=== PATIENT | female | born 1940 | race Caucasian/White ===

== ENCOUNTER 2021-01-26 08:44 | Emergency (ER) | payer MEDICARE, SELFPAY ==
--- NOTE | ~2021-01-26 | CT_ITS ---
EXAMINATION: CT brain wo con DATE: 01/26/2021 10:08 INDICATION: Fall. Head injury. Facial injury. TECHNIQUE: Computed tomography (CT) of the head was performed without intravenous contrast. The mA wa s adjusted according to patient size. Iterative reconstruction technique was employed. Exam dose: 60 5.33 mGy-cm total exam DLP. COMPARISON: 10/14/2017 MRI brain FINDINGS: Prominent bilateral vertebral artery calcifications and prominent carotid siphon and suprac linoid internal carotid artery calcifications. There is nonspecific diminished attenuation of the cerebral white matter, likely due to chronic small vessel ischemic changes. No intracranial mass lesion or hemorrhage or recent cerebrovascular accident. No midline shift or mas s effect. There is moderate cerebral volume loss consistent with patient age. No subdural or epidural hematoma. No fracture or bone destruction of the cranial vault. Mastoid air cells and included paranasal sinuse s are normally developed and aerated. IMPRESSION: Prominent cerebral atherosclerosis and chronic small vessel ischemic changes of the cere bral white matter No acute intracranial finding or skull fracture Reviewed, dictated and finalized at [facility]. Reviewed, dictated and finalized at [facility]. IMPRESSION: Prominent cerebral atherosclerosis and chronic small vessel ischem ic changes of the cerebral white matter No acute intracranial finding or skull fracture
--- NOTE | ~2021-01-26 | CT_ITS ---
EXAMINATION: CT facial & cervical spine wo DATE: 01/26/2021 10:09 INDICATION: Fall. Head injury, facial injury. Headache, neck pain. TECHNIQUE: Computed tomography (CT) of the facial bones and maxillofacial region was performed withou t intravenous contrast. Automated exposure control and iterative reconstruction technique were employ ed. Exam dose: 172.60 mGy-cm total exam DLP. COMPARISON: None. FINDINGS: No facial fracture. The frontozygomatic sutures, orbital rims and girard, zygomatic arches, nasal bones and remainder of the facial bones are intact. No mandibular joints are intact. No mandibl e fracture is evident. There is straightening of the cervical spine. C1 and C2 are normally aligned and the odontoid process is intact. No fracture or dislocation or lock ed facet or prevertebral soft tissue swelling. Moderate degenerative disc disease at C2-3, moderately severe degenerative disc disease C3-4. There is mild anterolisthesis and mild degenerative disc disease at C4-5. There is severe degenerative disease at C5-6 and C6-7. There is fusion of the posterior elements at C2-3 on the left and degenerative change at the remainin g apophyseal joints. IMPRESSION: No facial fracture Straightening of the cervical spine Cervical spondylosis Reviewed, dictated and finalized at [facility]. Reviewed, dictated and finalized at [facility].
[2021-01-26 08:57] VITALS: BP 154/74; PULSE 74; RESP 16; TEMP 36.4; O2SAT 94
[2021-01-26] MEDS: TETANUS,DIPHTHERIA,AC PERTUSSIS ADULT (0.5 ML) BOOSTRIX IM (09:53)
--- NOTE | 2021-01-26 10:55 | ED.FALL ---
HPI - Fall General Chief Complaint: Fall Stated Complaint: FALL-CHIN LAC Time Seen by Provider: 01/26/21 09:27 Source: patient and RN notes reviewed Mode of arrival: EMS Limitations: dementia History of Present Illness HPI Narrative: This is an 81 year old female who presents from Assisted living who presents for evaluation of chin laceration. Patient does not remember why or how she fell. Nursing report states patient fell using her walker and she hit her chin. She was found to have a chin laceration needed stitches. PAtient denies any other complaints. Related Data Home Medications Medication Instructions Recorded Confirmed dorzolamide-timolol 07/02/19 ramipril mg 07/02/19 rivastigmine 07/02/19 Allergies Allergy/AdvReac Type Severity Reaction Status Date / Time No Known Allergies Allergy Verified 01/26/21 09:22 Review of Systems Review of Systems: All systems reviewed & are unremarkable except as noted in HPI and below Constitutional: Constitutional: Denies chills and Denies fever(s) Eyes: Eyes: Denies change in vision ENT: Denies dizziness Cardiovascular: Cardiovascular: Denies chest pain Musculoskeletal: Musculoskeletal: Denies back pain FOR[facility]LY [facility], [facility] Past Medical History Medical History (Updated 01/26/21 @ 14:27 by Kathi Lerner MD) CHF (congestive heart failure) Dementia Hyperlipidemia Hypertension Family History Family History (Updated 05/27/16 @ 11:37 by DOCTOR UNKNOWN) Sibling Family history of malignant neoplasm Mother Carcinoma of colon Other Family history of malignant neoplasm of breast in first degree relative Social History Social History Smoking status: Never smoker Smoking end date: 06/07/77 Alcohol intake: never Exam Const: General: no acute distress and alert Other: oriented to person, palce HENMT: Mouth: Yes Normal oral and palatal mucosa present Throat: uvula midline Other: 2 cm chin laceration Eyes: Pupils: Equal, round and reactive pupils present EOM: EOMs intact bilaterally Neck: Neck: normal visual inspection Chest: Chest palpation & inspection: normal inspection of the chest Resp: Effort & Inspection: normal respiratory effort and no retractions Auscultation: clear to auscultation bilaterally Cardio: Rate: regular rate Rhythm: regular rhythm Heart sounds: no murmurs GI: GI Palp: Yes Soft to palpation, No Tenderness to palpation present (GI) and No Guarding due to palpation present (GI) Auscultation: normal bowel sounds Neuro: General: moves all extremities and CN's II-XI intact bilaterally Extrem: Other: bilateral elbow with bandage, patient reports from previous fall, otherwise FROM Psych: Mental Status: mental status grossly normal Affect: normal affect Course Reevaluation(s) Reevaluation #1: Patient's imaging is unremarkable. Her chin laceration has been repaired. No further complaints. she has been up and ambulating. Date: 01/26/21 Time: 14:25 Vital Signs Vital signs: Vital Signs Temperature 97.6 F 01/26/21 08:57 Pulse Rate 74 01/26/21 08:57 Respiratory Rate 16 01/26/21 08:57 Blood Pressure 154/74 H 01/26/21 08:57 Pulse Oximetry 94 01/26/21 08:57 Temperature 97.6 F 01/26/21 08:57 Pulse Rate 80 01/26/21 11:11 Respiratory Rate 16 01/26/21 11:11 Blood Pressure 200/83 H 01/26/21 11:11 Pulse Oximetry 94 01/26/21 08:57 Procedures Laceration Laceration 1: Date: 01/26/21 Time: 14:24 Site: other (chin laceration) Description: clean Depth: simple, single layer Pre-repair: wound explored and deep structures intact ====== Skin Level ====== Skin layer closed with: other (fast absorbing gut) Size (cm): 5-0 Number of sutures: 7 Technique: simple, interrupted ====== Subcutaneous Layer ====== ====== Muscle Layer ====== ====== Tendon Layer ====== MDM - Fall Imaging Data Radiologi
[2021-01-26 11:11] VITALS: BP 200/83; PULSE 80; RESP 16
--- NOTE | 2021-01-26 12:20 | PC.NURSE ---
meal tray ordered
--- NOTE | 2021-01-26 12:52 | PC.NURSE ---
PT ASKED TO CONTACT HER SON JHONY. ATTEMPTED TO CONTACT NO ANSWER,LEFT MESSAGE TO RETURN CALL.
--- NOTE | 2021-01-26 14:14 | PC.NURSE ---
suturing completed. pt tolerated well. [facility] does not have a bus today. message left with son for ride back to assisted living.
--- NOTE | 2021-01-26 14:37 | PC.NURSE ---
[facility] to transport pt back to [facility]
== END 2021-01-26 13:07 ==
PROVIDERS: Emergency Provider General Practice; PCP Family Medicine
DX: S01.81XA Laceration without foreign body of other part of head, initial encounter (principal); I50.9 Heart failure, unspecified; I11.0 Hypertensive heart disease with heart failure; F03.90 Unspecified dementia, unspecified severity, without behavioral disturbance, psychotic disturbance, mood disturbance, and anxiety; Z23 Encounter for immunization; W19.XXXA Unspecified fall, initial encounter; Y92.129 Unspecified place in nursing home as the place of occurrence of the external cause
CPT/HCPCS: 12011; 70450; 70486; 72125; 90471; 90715; 99284

== ENCOUNTER 2023-01-14 11:37 | Emergency (ER) | payer MEDICARE, SELFPAY ==
--- NOTE | ~2023-01-14 | XR_ITS ---
EXAMINATION: XR hip BI 2V w AP pelvis DATE: 01/14/2023 12:39 INDICATION: Fall. Right hip pain. TECHNIQUE: An anteroposterior view of the pelvis and 2 views of right hip and 2 views of left hip on a total of 6 radiographs were obtained. COMPARISON: Right hip radiographs 12/24/2011 FINDINGS: There is a total right hip arthroplasty in near-anatomic alignment. No periprosthetic lucen cy to disclose loosening or infection. There is a fracture deformity of right inferior pubic ramus. T here is lumbar dextroscoliosis and severe spondylosis. There is severe left hip osteoarthritis. IMPRESSION: 1. Age-indeterminate fracture deformity of right inferior pubic ramus. 2. Total right hip arthroplasty in near-anatomic alignment. 3. Severe left hip osteoarthritis. Reviewed, dictated and finalized at [facility].
--- NOTE | ~2023-01-14 | CT_ITS ---
EXAMINATION: CT brain wo con DATE: 01/14/2023 14:33 INDICATION: Fall. TECHNIQUE: Computed tomography (CT) of the head was performed without intravenous contrast. The mA wa s adjusted according to patient size. Iterative reconstruction technique was employed. The dose-lengt h product was 681.00 mGy-cm. COMPARISON: Head CT 01/26/2021 FINDINGS: There are scattered areas of low attenuation in the cerebral white matter. There is no intr acranial hemorrhage, acute infarction, or abnormal intracranial mass lesion. The ventricles are karel l in size. There are likely changes of ocular lens replacement surgeries. The paranasal sinuses are c lear. The mastoid air cells are normal. IMPRESSION: 1. Stable moderate nonspecific cerebral white matter disease, which likely represents chronic small v essel ischemic disease. Reviewed, dictated and finalized at [facility]. IMPRESSION: 1. Stable moderate nonspecific cerebral white matter disease, which likely repr esents chronic small vessel ischemic disease.
--- NOTE | ~2023-01-14 | CT_ITS ---
EXAMINATION: CT chest abdomen pelvis w con DATE: 01/14/2023 14:34 INDICATION: Fall. TECHNIQUE: Computed tomography (CT) of the chest, abdomen, and pelvis was performed with 100 mL Omnip aque 350 intravenous contrast. Automated exposure control and iterative reconstruction technique were employed. The dose-length product was 770.90 mGy-cm. COMPARISON: None FINDINGS: CHEST CT: The lungs demonstrate mild atelectasis. No pleural effusion. Cardiomegaly is noted. There are coronar y artery calcifications. No pericardial effusion. Calcified left hilar and mediastinal lymph nodes ar e consistent with old granulomatous disease. There is a moderate-sized sliding hiatal hernia. There i s moderate thoracic spondylosis. There are old healed bilateral rib fractures. ABDOMEN/PELVIS CT: Calcifications in the liver and spleen are consistent with old granulomatous disease. There is modera te intrahepatic biliary duct dilatation. There is a 12 mm low-attenuation mass in the spleen. The com mon duct is dilated to 18 mm. The gallbladder is absent. There is a 2.7 cm cystic lesion in the pancr eas. There are least 4 cystic lesions in the pancreas measuring up to 2.7 cm. The adrenal glands and right kidney are normal. There are cysts in left kidney measuring up to 2.4 cm. There is calcified at herosclerosis of the aorta and many of the other arteries. The bladder is markedly distended. There i s diverticulosis of the colon without evidence of diverticulitis. There are no dilated loops of bowel . The appendix is normal. There are no pathologically enlarged lymph nodes. There is no ascites. Ther e is a total right hip arthroplasty. There is an old healed fracture of right inferior pubic ramus. T here is lumbar dextroscoliosis and severe spondylosis. IMPRESSION: 1. Moderate-sized sliding hiatal hernia. 2. Moderate intrahepatic and extrahepatic biliary duct dilatation status post cholecystectomy. Correl ate with liver function tests to determine if this finding is clinically significant. 3. 12 mm splenic mass, likely benign in the absence of known malignancy. 4. Cystic lesions of the pancreas measuring up to 2.7 cm, likely benign. Reviewed, dictated and finalized at [facility]. IMPRESSION: 1. Moderate-sized sliding hiatal hernia. 2. Moderate intrahepatic and extrahepatic biliary duct dilatation status post c holecystectomy. Correlate with liver function tests to determine if this findin g is clinically significant. 3. 12 mm splenic mass, likely benign in the absence of known malignancy. 4. Cystic lesions of the pancreas measuring up to 2.7 cm, likely benign.
--- NOTE | ~2023-01-14 | XR_ITS ---
EXAMINATION: XR wrist LT min 3V DATE: 01/14/2023 12:36 INDICATION: Left wrist pain. Fall. TECHNIQUE: 4 views of left wrist were obtained. COMPARISON: None. FINDINGS: There is a transverse fracture of distal radial metaphysis. The distal fracture fragment de monstrates impaction and dorsal angulation. There is 25 degrees dorsal tilt of the distal articular s urface. There is mild osteoarthritis of triscaphe joint. IMPRESSION: 1. Transverse fracture of distal radial metaphysis. Reviewed, dictated and finalized at [facility].
--- NOTE | ~2023-01-14 | CT_ITS ---
EXAMINATION: CT cervical spine wo con DATE: 01/14/2023 14:34 INDICATION: Fall TECHNIQUE: Computed tomography (CT) of the cervical spine was performed without intravenous contrast. Automated exposure control and iterative reconstruction technique were employed. The dose-length pro duct was 199.96 mGy-cm. COMPARISON: 01/26/2021. FINDINGS: Vertebral Body Alignment: Intact. Stable minimal grade 1 retrolisthesis at C3-4 and mild grade 1 ante rolisthesis at C4-5 Craniocervical and atlantoaxial alignment: Moderate degenerative change. Alignment intact. Osseous structures/fracture: No evidence of a lytic or blastic process in the visualized spine. Miri skyler oriented nondisplaced fracture line through the left C2 vascular foramen. Obliquely oriented, n ondisplaced fracture line through the inferior and posterior aspect of the C2 vertebral body. Left C2 -3 facet fusion. Cervical soft tissues: The paraspinal soft tissues planes are maintained. Degenerative changes: Degenerative changes, without severe neural foraminal or central canal narrowin g. IMPRESSION: Nondisplaced oblique fracture through the inferior and posterior aspect of the C2 vertebral body. Cor onally oriented nondisplaced fracture of the left C2 vascular foramen. Recommend CTA of the neck to e xclude vascular injury. Reviewed, dictated and finalized at [facility]. IMPRESSION: Nondisplaced oblique fracture through the inferior and posterior aspect of the C2 vertebral body. Coronally oriented nondisplaced fracture of the left C2 vasc ular foramen. Recommend CTA of the neck to exclude vascular injury.
[2023-01-14 11:53] VITALS: BP 173/74; PULSE 80; RESP 16; TEMP 36.7; O2SAT 96
[2023-01-14] MEDS: MORPHINE SULFATE (*CRX) 2 MG/ML INJ IV PUSH (13:47)
[2023-01-14 14:01] LABS: Anion Gap 4 mmol/L (8-16); Blood Urea Nitrogen 15 mg/dL (7-17); Calcium 8.4 mg/dL (8.4-10.2); Carbon Dioxide 26 mmol/L (22-30); Chloride 106 mmol/L (98-107); Estimated CRCL calculation 46 ml/min; Estimated Glomerular Filt Rate > 60; Glucose 105 mg/dL (65-110); Potassium 3.9 mmol/L (3.4-5.0); Sodium 136 mmol/L (137-145)
[2023-01-14 14:08] VITALS: BP 140/66; PULSE 74; RESP 16; O2SAT 96
--- NOTE | 2023-01-14 15:51 | ED.FALL ---
HPI - Fall General Chief Complaint: Fall Stated Complaint: fall Time Seen by Provider: 01/14/23 13:01 History of Present Illness HPI Narrative: This is an 82-year-old female, with past history of dementia and DNR status, brought in by EMS after a fall at her long term. The patient's son who is at bedside states the patient reportedly fell while changing her close but was not witnessed. When she was seen in breakfast, the patient complained of neck pain and wrist pain and reported her fall. The patient was reportedly ambulatory at the time. Related Data Home Medications Medication Instructions Recorded Confirmed dorzolamide 22.3 mg-timolol 6.8 07/02/19 mg/mL eye drops ramipril 10 mg capsule mg 07/02/19 rivastigmine 9.5 mg/24 hour 07/02/19 transdermal patch Allergies Allergy/AdvReac Type Severity Reaction Status Date / Time No Known Allergies Allergy Verified 01/26/21 09:22 Review of Systems Review of Systems: CONSTITUTIONAL: Denies fever, chills, or sweats. EYES: Denies visual changes, redness, or discharge. CARDIOVASCULAR: Denies chest pain, palpitations, or edema. RESPIRATORY: Denies cough or dyspnea. GASTROINTESTINAL: Denies abdominal pain, nausea, vomiting, or diarrhea. GENITOURINARY: Denies dysuria or hematuria. SKIN: Denies rash or itching. MUSCULOSKELETAL: Neck pain denies joint pain, or myalgia. NEUROLOGIC: Headache Denies numbness, dizziness, or weakness. PSYCHIATRIC: Denies anxiety or depression. [facility] Past Medical History Medical History (Updated 01/14/23 @ 16:10 by Manan Croft MD) CHF (congestive heart failure) Dementia Hyperlipidemia Hypertension Family History Family History (Updated 05/27/16 @ 11:37 by DOCTOR UNKNOWN) Sibling Family history of malignant neoplasm Mother Carcinoma of colon Other Family history of malignant neoplasm of breast in first degree relative Social History Social History Smoking status: Never smoker Smoking end date: 06/07/77 Alcohol intake: never Exam Narrative: GENERAL: Well-developed, well-nourished, and in no acute distress. HEAD: Normocephalic, atraumatic. EYES: PERRLA and EOMI. ENT: Nares clear, no rhinorrhea or epistaxis. Mucous membranes moist. Oropharynx without tonsillar hypertrophy exudate or other lesions. Bilateral TMs pearly bradley nonbulging NECK: Supple. Midline spine tenderness to palpation at C2-C3, no step-off or crepitus CHEST: Clear to auscultation. No respiratory distress. No wheezes rales or rhonchi HEART: Regular rate and rhythm. No murmur heard. Normal peripheral pulses. ABDOMEN: Soft, nontender, nondistended, normal active bowel sounds. BACK: No midline spine tenderness to palpation, no step-off or crepitus EXTREMITIES: Deformity of the left distal wrist with small amount of ecchymosis. Otherwise normal range of motion. No edema. SKIN: Warm, dry, no rash. NEURO: No focal deficits. Alert and oriented x1 (self). Strength 5/5 in all extremities, sensation intact bilaterally, cranial nerves II through XII intact Course Course Emergency Course: 15:57 - CT demonstrates a nondisplaced oblique fracture of C2 with communication to the vertebral anterior foramen. X-ray demonstrates a distal left radius fracture. CT chest abdomen pelvis not concerning for other acute injuries. CT head not concerning for intracranial hemorrhage or skull fracture. X-ray of the pelvis shows an age-indeterminate right inferior ramus fracture. I discussed the patient with [facility] comm nurse, Lexis who accepts ED to ED transfer for trauma evaluation. I discussed these findings and recommendations with the patient's son who voiced understanding and is comfortable with the plan. All questions answered to his satisfaction. Vital Signs Vital signs: Vital Signs Temperature 98.0 F 01/14/23 11:53 Pulse Rate 80 01/14/23 11:53 Respiratory Rate 16 01/14/23 11:53 Blood Pressure 173/74 H 01/14/23 11:
[2023-01-14 16:18] LABS: Basophils Absolute Auto 0.1 K/mm3 (0.0-0.1); Basophils Percent Auto 0.5 % (0.2-1.2); Hematocrit 31.9 % (37.0-47.0); Hemoglobin 9.4 g/dL (12.0-15.0); Immature Granulocyte Absolute 0.03 K/mm3 (0.00-0.031); Immature Granulocyte Percent A 0.3 % (0-0.5); Lymphocytes Absolute Auto 0.96 K/mm3 (0.9-3.2); Lymphocytes Percent Auto 8.2 % (18.3-44.2); Mean Corpuscular HGB Conc 29.5 g/dl (32-36); Mean Corpuscular Volume 84.8 fl (80-100); Mean Platelet Volume 9.7 fl (7.4-10.4); Monocytes Absolute Auto 0.4 K/mm3 (0.1-0.6); Neutrophils Absolute Auto 10.3 K/mm3 (1.3-6.7); Platelet Count Result 384 k/mm3 (150-375); Red Blood Count 3.76 M/mm3 (4.2-5.4); Red Cell Distribution Width 14.9 % (11.5-14.5); White Blood Count 11.7 K/mm3 (4.5-10.0)
[2023-01-14 16:27] VITALS: BP 162/67; PULSE 77; RESP 18; O2SAT 96
[2023-01-14 16:27] LABS: Hypochromasia 1+ (NORMAL); Ovalocytes 1+ (NORMAL); Platelet Estimate Increased (Adequate); Schistocytes None Seen (NORMAL)
--- NOTE | 2023-01-14 17:27 | PC.NURSE ---
To Colleen per [facility] em[facility]. Condition stable.
== END 2023-01-14 17:29 | disposition short-term general hospital (02) ==
PROVIDERS: Emergency Provider Preventive Medicine Aerospace Medicine; PCP Family Medicine
DX: S12.191A Other nondisplaced fracture of second cervical vertebra, initial encounter for closed fracture (principal); S32.591A Other specified fracture of right pubis, initial encounter for closed fracture; S59.292A Other physeal fracture of lower end of radius, left arm, initial encounter for closed fracture; F03.90 Unspecified dementia, unspecified severity, without behavioral disturbance, psychotic disturbance, mood disturbance, and anxiety; I50.9 Heart failure, unspecified; I11.0 Hypertensive heart disease with heart failure; E78.5 Hyperlipidemia, unspecified; Z87.891 Personal history of nicotine dependence; R90.82 White matter disease, unspecified; K44.9 Diaphragmatic hernia without obstruction or gangrene; K86.9 Disease of pancreas, unspecified; D73.9 Disease of spleen, unspecified; M16.12 Unilateral primary osteoarthritis, left hip; Z90.49 Acquired absence of other specified parts of digestive tract; Z96.641 Presence of right artificial hip joint; W19.XXXA Unspecified fall, initial encounter
CPT/HCPCS: 29125; 36415; 51702; 70450; 71260; 72125; 73110; 73521; 74177; 80048; 85025; 96374; 99285; J2270; L0140; Q9967

== ENCOUNTER 2023-09-21 11:30 | Emergency (ER) | payer MEDICARE, SELFPAY ==
--- NOTE | ~2023-09-21 | CT_ITS ---
CT head without contrast Indication: Status post fall COMPARISON: 01/14/2023 Technique: Serial scans were obtained through the brain without the administration of contrast. Dose reduction technique was used on this scan by utilizing automated exposure control and iterative recon struction technique. The dose-length product (DLP) was 681.00 mGy-cm. Findings: There is no evidence of intracranial hemorrhage, mass lesion, or acute infarct. The ventri cles and subarachnoid spaces are dilated, consistent with mild to moderate atrophy. Low attenuation regions are seen within the periventricular white matter bilaterally, likely representing changes fro m chronic microvascular ischemic disease. There is no evidence of edema, mass effect or midline shif t. The visualized paranasal sinuses and mastoid air cells are clear. Impression: No intracranial hemorrhage, mass, or acute infarct. Atrophy and chronic white matter changes, as above. Reviewed, dictated and finalized at location . Impression: No intracranial hemorrhage, mass, or acute infarct. Atrophy and chronic white matter changes, as above.
[2023-09-21 11:26] VITALS: BP 170/69; PULSE 86; RESP 20; TEMP 36.5; O2SAT 96
[2023-09-21 12:29] VITALS: BP 188/79; PULSE 83; RESP 20; O2SAT 95
--- NOTE | 2023-09-21 12:54 | ED.FALL ---
HPI - Fall General Chief Complaint: Fall Stated Complaint: fall Time Seen by Provider: 09/21/23 12:00 Source: patient and EMS Mode of arrival: EMS Limitations: dementia History of Present Illness HPI Narrative: 83-year-old with a history of dementia, hypertension was brought in by EMS from a memory care unit a complaint of fall. Complains of swelling on head. Denies any LOC has no other complaints. complaint: fall Onset (ago): unknown Fall witnessed: yes, by living facility staff Place fall occurred: half-way/SNF Loss of consciousness: none Prolonged down time: no Symptoms prior to fall: none Related Data Home Medications Medication Instructions Recorded Confirmed dorzolamide 22.3 mg-timolol 6.8 07/02/19 03/03/23 mg/mL eye drops ramipril 10 mg capsule mg 07/02/19 03/03/23 rivastigmine 9.5 mg/24 hour 07/02/19 03/03/23 transdermal patch Allergies Allergy/AdvReac Type Severity Reaction Status Date / Time No Known Allergies Allergy Verified 01/26/21 09:22 Review of Systems Review of Systems: All systems reviewed & are unremarkable except as noted in HPI and below Constitutional: Constitutional: Reports no additional constitutional complaints Eyes: Eyes: Reports no additional eye complaints ENT: Reports system reviewed and no additional complaints, except as documented Cardiovascular: Cardiovascular: Reports no additional cardiovascular complaints Respiratory: Respiratory: Reports no additional respiratory complaints Gastrointestinal: Gastrointestinal: Reports no additional gastrointestinal complaints Musculoskeletal: Musculoskeletal: Reports no additional musculoskeletal complaints Neurologic: Reports system reviewed and no additional complaints, except as documented PMFSH Past Medical History Medical History CHF (congestive heart failure) Dementia Hyperlipidemia Hypertension Surgical History Surgical History History of hip replacement Family History Family History Sibling Family history of malignant neoplasm Mother Carcinoma of colon Other Family history of malignant neoplasm of breast in first degree relative Social History Social History Smoking status: Never smoker Smoking end date: 06/07/77 Alcohol intake: never Exam Narrative: GENERAL: Well-appearing, well-nourished, and in no acute distress. HEAD: Normocephalic, atraumatic.a small hematoma on the right occipital area EYES: PERRLA and EOMI. ENT: Nares clear, no rhinorrhea or epistaxis. Mucous membranes moist. NECK: Supple. CHEST: Clear to auscultation. No respiratory distress. HEART: Regular rate and rhythm. No murmur heard. Normal peripheral pulses. ABDOMEN: Soft, nontender, nondistended, normal active bowel sounds. EXTREMITIES: Normal range of motion. No edema. SKIN: Warm, dry, no rash. NEURO: No focal deficits. Alert and oriented x2. PSYCH: Normal mood and affect. Course Course Emergency Course: Patient comfortably resting on the bed doing crossword puzzle. Informed her and her son who is at bedside about the CT findings. He feels comfortable taking her back the half-way. Vital Signs Vital signs: Vital Signs Temperature 36.5 C 09/21/23 11:26 Pulse Rate 86 09/21/23 11:26 Respiratory Rate 20 09/21/23 11:26 Blood Pressure 170/69 H 09/21/23 11:26 Pulse Oximetry 96 09/21/23 11:26 Oxygen Delivery Room Air 09/21/23 11:26 Temperature 36.5 C 09/21/23 11:26 Pulse Rate 83 09/21/23 12:29 Respiratory Rate 20 09/21/23 12:29 Blood Pressure 188/79 H 09/21/23 12:29 Pulse Oximetry 95 09/21/23 12:29 Oxygen Delivery Room Air 09/21/23 11:26 MDM - Fall Differential Diagnosis Differential diagnosis: Likely concussion with loss of consci
[2023-09-21 13:32] VITALS: BP 134/76; PULSE 76; RESP 16; O2SAT 99
--- NOTE | 2023-09-21 13:39 | PC.NURSE ---
attempted to call report to [facility] prior to discharge, no answer.
--- NOTE | 2023-09-21 13:46 | PC.NURSE ---
tala at ID called back, report given.
== END 2023-09-21 13:33 ==
PROVIDERS: Emergency Provider Family Medicine
DX: S09.90XA Unspecified injury of head, initial encounter (principal); I11.0 Hypertensive heart disease with heart failure; I50.9 Heart failure, unspecified; F03.90 Unspecified dementia, unspecified severity, without behavioral disturbance, psychotic disturbance, mood disturbance, and anxiety; E78.5 Hyperlipidemia, unspecified; W19.XXXA Unspecified fall, initial encounter
CPT/HCPCS: 70450; 99284

== ENCOUNTER 2024-07-30 22:57 | Inpatient (IN) | payer MEDICARE, SELFPAY ==
--- NOTE | ~2024-07-30 | CT_ITS ---
CT head without contrast Indication: Head injury COMPARISON: 09/21/2023 Technique: Serial scans were obtained through the brain without the administration of contrast. Dose reduction technique was used on this scan by utilizing automated exposure control and iterative recon struction technique. The dose-length product (DLP) was 681.00 mGy-cm. Findings: There is no evidence of intracranial hemorrhage, mass lesion, or acute infarct. The ventri cles and subarachnoid spaces are dilated, consistent with mild to moderate atrophy. Low attenuation regions are seen within the periventricular white matter bilaterally, likely representing changes fro m chronic microvascular ischemic disease. There is no evidence of edema, mass effect or midline shif t. The visualized paranasal sinuses and mastoid air cells are clear. There is soft tissue swelling/h ematoma in the left parietal scalp. Impression: No intracranial hemorrhage, mass, or acute infarct. Atrophy and chronic white matter changes, as above. Soft tissue swelling/hematoma in the left parietal scalp. Reviewed, dictated and finalized at location . EXPRESS CLERK Impression: No intracranial hemorrhage, mass, or acute infarct. Atrophy and chronic white matter changes, as above. Soft tissue swelling/hematoma in the left parietal scalp.
--- NOTE | ~2024-07-30 | XR_ITS ---
AP view of the pelvis Clinical history: Pain Findings: No acute fracture or dislocation is seen. 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 There is advance d degenerative change of the left hip joint, joint space narrowing and extensive osteophyte formation . There are degenerative change of the lower lumbar spine and SI joints.. Soft tissues are unremarkab le. Impression: No acute abnormality. Right hip arthroplasty. Degenerative changes, as above. Reviewed, dictated and finalized at location M. NSIC SERGEANT Impression: No acute abnormality. Right hip arthroplasty. Degenerative changes, as above.
--- NOTE | ~2024-07-30 | XR_ITS ---
Left elbow Technique: AP, oblique, and lateral views were obtained. Clinical History: Pain Findings: No acute fracture or dislocation is seen. Osseous alignment is anatomic. Joint spaces are p reserved. There is no displacement of the fat pads, and soft tissues are unremarkable. Impression: Unremarkable radiographs. Reviewed, dictated and finalized at [facility]. SCRIPTION MANAGER Impression: Unremarkable radiographs.
--- NOTE | ~2024-07-30 | CT_ITS ---
Noncontrast CT scan of the cervical spine Technique: Multiple contiguous axial [address] images of the cervical spine were obtained and rec onstructed in 2D sagittal and coronal planes on the acquisition scanner. Dose reduction technique was used on this scan by utilizing automated exposure control, adjustment of the mA and/or kV according to patient size. The dose-length product (DLP) was 127.76 mGy-cm. Clinical History: Pain COMPARISON: 01/14/2023 Findings: No acute fracture identified. There is 3 mm anterolisthesis of C4 over C5. There is advance d degenerative standard C5-C6 and C6-C7. There is moderate to advanced degenerative disc narrowing at C3-C4. There is left neural foraminal narrowing at C3-C4 with bilateral facet arthropathy. There is left neural foraminal narrowing at C4-C5. There is bilateral neural foraminal narrowing at C5-C6 and C6-C7. No prevertebral soft tissue swelling. Impression: No acute fracture. 3 mm anterolisthesis of C4-C5, similar to prior exam. Moderate degenerative change, as above. Reviewed, dictated and finalized at location . LES POURER Impression: No acute fracture. 3 mm anterolisthesis of C4-C5, similar to prior exam. Moderate degenerative change, as above.
--- NOTE | ~2024-07-30 | XR_ITS ---
Portable chest x-ray Comparison: 09/23/2015 Clinical History: Status post fall Findings: Lungs are clear, without focal consolidation or pleural effusion. Cardiomediastinal silho uette is stable. Bones and soft tissues are unremarkable. Impression: Clear lungs. Stable cardiomegaly. Reviewed, dictated and finalized at location . MACHINE OPERATOR Impression: Clear lungs. Stable cardiomegaly.
[2024-07-30 23:11] VITALS: BP 194/102; PULSE 104; RESP 16; TEMP 38.4; O2SAT 95
[2024-07-31] VITALS (7 sets, daily range): BP systolic 150–174; BP diastolic 68–85; PULSE 63–98; RESP 13–20; TEMP 36.2–37.6; O2SAT 94–100; BMI 25.2
--- OUTSIDE RECORDS SUMMARY | 2024-07-31 00:08 | XMS_ITS | Clinical Summary ---
Author Organization [facility] [employer] Address [address] [place] [address] Care Team Providers Care Advanced Research Programs Director Name Role Phone Unknown, Provider Primary Care Provider Angle Gonzales Unavailable Unavailable Source Comments [facility] [employer],non-owned Affiliates and Associated Physician Practices is amultiple site organization consisting of ambulatory clinics and hospital sitesin [place], [place], [place] and [place]. This disclosure is being madepursuant to the Care Everywhere program and may not contain all information available regarding this patient. Last updated 18.[facility] [employer] Allergies No known active allergies Medications * Be aware that medications may not be up to date on this document. Alwaysverify current medications with the patient. Medication Sig Dispensed Refills Start Date End Date Status ramipril (ALTACE) 10 MG capsule Take 10 mg by mouth once daily. Active dorzolamide (TRUSOPT) 2 % ophthalmic solution 1 Drop 3 times daily. Active alendronate (FOSAMAX) 70 MG tablet TAKE 1 TABLET BY MOUTH EVERY WEEK 3 07/19/2017 Active dilTIAZem coated beads 24hr (CARDIZEM CD) 240 MG capsule TAKE 1 CAPSULE BY ORAL ROUTE EVERY DAY 3 08/29/2017 Active NAMENDA XR 28 MG capsule Take 28 mg by mouth once daily 1 08/04/2017 Active rivastigmine (EXELON) 9.5 MG/24HR patch APPLY 1 PATCH TO THE SKIN ONCE DAILY, DO NOT APPLY TO SAME AREA MORE THAN ONCE EVERY 14 DAYS 5 08/30/2017 Active Active Problems No known active problems Social History Tobacco Use Types Packs/Day Years Used Date Smoking Tobacco: Former Smokeless Tobacco: Never Tobacco Cessation:Counseling Given: No Alcohol Use Standard Drinks/Week Comments No 0 (1 standard drink = 0.6 oz pur e alcohol) Sex and Gender Information Value Date Recorded Sex Assigned at Not on file Gender Identity Not on file Sexual Orientation Not on file Last Filed Vital Signs Vital Sign Reading Time Taken Comments Blood Pressure 147/76 09/15/2017 9:49 AM CDT Pulse 61 09/15/2017 9:49 AM CDT Temperature 36.8 C (98.3 F) 07/26/2012 2:31 PM DIRECTOR OF SURGERY Respiratory Rate 16 07/26/2012 2:46 PM DIRECTOR OF SURGERY Oxygen Saturation 98% 09/15/2017 9:49 AM CDT Inhaled Oxygen Concentration - - Weight 56.5 kg (124 lb 8 oz) 09/15/2017 9:49 AM CDT Height 157.5 cm (5' 2 ) 07/26/2012 1:00 PM DIRECTOR OF SURGERY Body Mass Index 22.77 07/26/2012 1:00 PM DIRECTOR OF SURGERY Plan of Treatment Health Maintenance Due Date Last Done Comments BONE DENSITY TESTING 1938 DTAP/TDAP/TD VACCINES (1 - Tdap) 1957 PNEUMOCOCCAL VACCINE 50+ (1 of 1 - PCV) 01/20/1988 ZOSTER VACCINE (1 of 2) 01/20/1988 Respiratory Syncytial Virus (RSV) Vaccine Pt: or over 60 yrs (1 - 1-dose 75+ series) 2013 COVID-19 VACCINE (2023-2 5 season) 2024 INFLUENZA VACCINE (#1) 2024 DEPRESSION SCREENING 06/07/2024 MEDICARE AWV CALENDAR YEAR 2024 HEPATITIS B VACCINE Aged Out No longe r eligible based on patient's age to complete this topic HIB VACCINE Aged Out No longer eligi ble based on patient's age to complete this topic HPV VACCINE Aged Out No longer eligi ble based on patient's age to complete this topic MENINGOCOCCAL (Group B) VACCINE Aged Out No longer eligible based on patient's age to complete this topic MENINGOCOCCAL VACCINE Aged Out No eun bridgett eligible based on patient's age to complete this topic Care Teams Advanced Research Programs Director Relationship Specialty Start Date End Date Unknown, Provider PCP - General 09/15/17 Angle Pablo Cotton Chopper Psychiatry 09/15/17
--- OUTSIDE RECORDS SUMMARY | 2024-07-31 00:08 | XMS_ITS | Patient Health Summary ---
Author Organization [facility] Address [address] [place] [address] Care Team Providers Care Wool Hat Finisher Name Role Phone Unknown, Provider Primary Care Provider Angle Gonzales Unavailable Unavailable Note from [facility],non-owned Affiliates and Associated Physician Practices is amultiple site organization consisting of ambulatory clinics and hospital sitesin [place], [place], [place]. This disclosure is being madepursuant to the Care Everywhere program and may not contain all information available regarding this patient. Last updated 18.[facility] Allergies No known active allergies Medications * Be aware that medications may not be up to date on this document. Alwaysverify current medications with the patient. * ramipril (ALTACE) 10 MG capsule Take 10 mg by mouth once daily. * dorzolamide (TRUSOPT) 2 % ophthalmic solution 1 Drop 3 times daily. * alendronate (FOSAMAX) 70 MG tablet(Started 07/19/2017) TAKE 1 TABLET BY MOUTH EVERY WEEK 3 refills left * dilTIAZem coated beads 24hr (CARDIZEM CD) 240 MG capsule(Started 08/29/2017) TAKE 1 CAPSULE BY ORAL ROUTE EVERY DAY 3 refills left * NAMENDA XR 28 MG capsule(Started 08/04/2017) Take 28 mg by mouth once daily 1 refill left * rivastigmine (EXELON) 9.5 MG/24HR patch(Started 08/30/2017) APPLY 1 PATCH TO THE SKIN ONCE DAILY, DO NOT APPLY TO SAME AREA MORE THAN ONCE EVERY 14 DAYS 5 refills left Active Problems No known active problems Social [...] 36.8 C (98.3 F) 07/26/2012 2:31 PM CRIMINAL RESEARCH SPECIALIST Respiratory Rate 16 07/26/2012 2:46 PM CRIMINAL RESEARCH SPECIALIST Oxygen Saturation 98% 09/15/2017 9:49 AM CDT Inhaled Oxygen Concentration - - Weight 56.5 kg (124 lb 8 oz) 09/15/2017 9:49 AM CDT Height 157.5 cm (5' 2 ) 07/26/2012 1:00 PM CRIMINAL RESEARCH SPECIALIST Body Mass Index 22.77 07/26/2012 1:00 PM CRIMINAL RESEARCH SPECIALIST Procedures * PATHOLOGY/CYTOLOGY REPORT ORDER(Performed 07/27/2012) * ENDOSCOPY, COLON, DIAGNOSTIC(Performed 07/26/2012) * GROSS + MICRO EXAM(Performed 07/26/2012) * GROSS + MICRO EXAM(Performed 01/21/2007) Results * PATHOLOGY/CYTOLOGY REPORT ORDER (07/27/2012 11:22 AM CRIMINAL RESEARCH SPECIALIST) Narrative 07/27/2012 11:22 AM CRIMINAL RESEARCH SPECIALIST Procedure Note Document, Scanned - 07/27/2012 11:22 AM CST Scanned Document LAB - PATHOLOGY/CYTO LOGY ORDERABLES * ENDOSCOPY, COLON, DIAGNOSTIC (07/26/2012 2:39 PM CRIMINAL RESEARCH SPECIALIST) Narrative [facility] - 07/26/2012 2:39 PM CRIMINAL RESEARCH SPECIALIST Procedure Note Ministerio Abernathy DO - 07/26/2012 2:39 PM CST Ministerio Abernathy DO GI PROCEDURE ORDER EMRE [facility] [place] [address] * GROSS + MICRO EXAM (07/26/2012 12:00 AM CRIMINAL RESEARCH SPECIALIST) Only the most recent of2 resultswithin the time period is included. [facility] Surgeon Dr. Bee Abernathy [facility] Grossed By KIYA Garcia [facility] Gross Report [facility] Comment: GROSS DESCRIPTION: Specimen is labeled Ghada, Jackie and sigmoid polyps and consists of two 1 and 3 mm red-potter polyps stained and submitted entirely in a single cassette. LL/alj Microscopic Examination [facility] Comment: The sigmoid polyps' biopsy shows two electrodessicated polyps, one of which is definitely hyperplastic, and the other one of which is probably hyperplastic. AB/lma Diagnosis [facility] Comment: 1. Sigmoid polyps, polypectomy: -- Hyperplastic polyps, electrodessicated AB/lma Released by HEATHER MORATAYA M.D. [facility] CPT Code 59084 [facility] Performed By [facility] at [facility], [address] [place] [id number] [facility] POLYP OF SIGMOID COLON / Unknown 07/26/2012 07/27/2012 8:10 AM CRIMINAL RESEARCH SPECIALIST Ministerio Abernathy DO LAB - PATHOLOGY/CY TERRIY ORDERABLES Performing Organization Address [facility] Co de Phone Number [facility] [address] [place] [address] Care Teams Wool Hat Finisher Relationship Specialty Start Date End Date Unknown, Provider PCP - General 09/15/17 Angle Pablo Senior Packaging Engineer Psychiatry 09/15/17
--- OUTSIDE RECORDS SUMMARY | 2024-07-31 00:08 | XMS_ITS | Referral Summary ---
Author Organization [facility] Address [address] [place] [address] Care Team Providers Care Cashier Assistant Name Role Phone Unknown, Provider Primary Care Provider Angle Gonzales Unavailable Unavailable Source Comments [facility],non-owned Affiliates and Associated Physician Practices is amultiple site organization consisting of ambulatory clinics and hospital sitesin [place], [place], [place] and [place]. This disclosure is being madepursuant to the Care Everywhere program and may not contain all information available regarding this patient. Last updated 18.[facility] Allergies No known active allergies Medications * [...] 36.8 C (98.3 F) 07/26/2012 2:31 PM RN MED SURG Respiratory Rate 16 07/26/2012 2:46 PM RN MED SURG Oxygen Saturation 98% 09/15/2017 9:49 AM CDT Inhaled Oxygen Concentration - - Weight 56.5 kg (124 lb 8 oz) 09/15/2017 9:49 AM CDT Height 157.5 cm (5' 2 ) 07/26/2012 1:00 PM RN MED SURG Body Mass Index 22.77 07/26/2012 1:00 PM RN MED SURG Plan of Treatment Not on file Care Teams Cashier Assistant Relationship Specialty Start Date End Date Unknown, Provider PCP - General 09/15/17 Angle Pablo Mobile Application Engineer Psychiatry 09/15/17
--- OUTSIDE RECORDS SUMMARY | 2024-07-31 00:08 | XMS_ITS | Continuity of Care Document ---
Author Organization [facility] Address [address] [place] [address] Phone Care Team Providers Care Dresser Tender Name Role Phone Loredo OD, Ramiro Unavailable Unavailable Procedures Procedure Date Office/outpatient Visit, Est Advance Directives Directive Yes / No Effective Date File Name No Information Encounters Encounter Description Practice Location Reason(s) For Visit Diagnoses Date Provider Providers Copied on Encounter Office/outpat ient Visit, Est [facility], [address] [place] [address] [address], [place], [place], [id number], [place] tel:[phone] [address] [facility] No Information [phone] Loredo OD Ramiro. [address] , [address], [place], [address], [place]. tel:[phone] Family History Family Member Type Diagnosis Age At Onset No Information Payers Payer name Insurance type Covered republican ID Authoriza tion(s) Medicare [facility] [id number] [facility] [id number] Social History Type Description Quantity Date Captured Comments Sex Female Smoking Status No Information Chief Complaint And Reason For Visit No Information Reason For Referral Reason For Referral No Information History Of Present Illness Encounter Date Complaint History Of Prese nt Illness No Information Functional Status Date Functional Assessmen t No Information Instructions Date Instruction Additional Infor mation No Information Assessments Type Assessment Date No Information Patient Care Teams Name Effective Dates (start - stop) Status Members No Information
--- OUTSIDE RECORDS SUMMARY | 2024-07-31 00:08 | XMS_ITS | Clinical Summary ---
Author Organization [facility] Address [address] [place] [place] [address] Phone Care Team Providers Care Chemistry Research Assistant Name Role Phone Dipak Parmar MD Primary Care Provider Allergies No known active allergies Medications acetaminophen (TYLENOL) 325 mg tablet Take 2 Tablets (650 mg) by mouth every 4 hours as needed for Pain, Mild. 3 Active bisacodyL (DULCOLAX) 10 mg Suppository Insert 1 Suppository (10 mg) by rectum 1 time daily as needed for Constipation. 3 Active diltiaZEM (CARDIZEM CD) 240 mg Controlled Delivery 24 hour capsule Take 1 Capsule (240 mg) by mouth daily. 1 3 Active docusate sodium (COLACE) 100 mg capsule Take 1 Capsule (100 mg) by mouth 2 times daily. 3 Active memantine (NAMENDA) 10 mg Tablet Take 1 Tablet (10 mg) by mouth 2 times daily. 3 Active methocarbamoL (ROBAXIN) 500 mg tablet Take 1 Tablet (500 mg) by mouth every 6 hours. 3 Active polyethylene glycol (MIRALAX) 17 gram Powder in Packet Take 1 Packet (17 Grams) by mouth daily. 3 Active ramipriL (ALTACE) 10 mg capsule Take 1 Capsule (10 mg) by mouth daily. 1 Active oxyCODONE (ROXICODONE) 5 mg tabletIndication s:Closed fracture of cervical vertebra, unspecified cervical vertebral level, initial encounter ([facility]) Take 1 Tablet (5 mg) by mouth every 4 hours as needed for Pain. Max Daily Amount: 30 mg 20 Tablet Active Active Problems Problem Noted Date Diagnosed Date Fracture of second cervical vertebra 01/14/2023 Unwitnessed fall 01/14/2023 Fracture of distal end of left radius 01/14/2023 Pubic ramus fracture, right, closed, initial enc ounter 01/14/2023 Closed nondisplaced fracture of styloid process of left ulna 01/14/2023 Inferior pubic ramus fractur e, right, closed, initial encounter 01/14/2023 Closed fracture of cervical vertebra 01/14/2023 Social History Tobacco Use Types Packs/Day Years Used Date Smoking Tobacco: Never Tobacco Cessation:Counseling Given: Not Answered Feeling Safe Answer Date Recorded Are you in a relationship wi th someone who hurts you emotionally and/or physically? No 01/14/2023 Comments No Sex and Gender Information Value Date Recorded Sex Assigned at Not on file Legal Sex Female 3:52 PM CDT Gender Identity Not on file Sexual Orientation Not on file Last Filed Vital Signs Vital Sign Reading Time Taken Comments Blood Pressure 165/84 01/18/2023 10:17 AM CDT Pulse 94 01/18/2023 10:17 AM CDT Temperature 36.3 C (97.4 F) 01/18/2023 10:17 AM CDT Respiratory Rate 17 01/18/2023 10:17 AM CDT Oxygen Saturation 95% 01/18/2023 10:17 AM CDT Inhaled Oxygen Concentration - - Weight 56.7 kg (125 lb) 01/14/2023 11:00 PM CDT Height 160 cm (5' 3 ) 01/14/2023 11:00 PM CDT Body Mass Index 22.14 01/14/2023 11:00 PM CDT Plan of Treatment Health Maintenance Due Date Last Done Comments DTAP/TDAP/TD VACCINES (1 - Tdap) 1959 PNEUMOCOCCAL VACCINE 65+ YEARS (1 of 1 - PCV) 01/19/19 88 ZOSTER VACCINE (1 of 2) 01/20/1988 OSTEOPOROSIS SCREENING 2003 RSV VACCINE (60+ or ) (1 - 1-dose 75+ series) 2013 INFLUENZA VACCINE (#1) 2024 Insurance [employer] PPO MCR Advance Directives For more information, please contact: [phone] * Full Code (Latest Code Status on File) Date Activated Date Inactivated Comments 01/15/2023 1:16 AM 01/18/2023 5:02 PM Care Teams Chemistry Research Assistant Relationship Specialty Start Date End Date Dipak Parmar MD [address] [place] [address] PCP - General Family Practice 01/14/23
--- OUTSIDE RECORDS SUMMARY | 2024-07-31 00:08 | XMS_ITS | Clinical Summary ---
Author Organization [facility] Address [address] [place] [address] Care Team Providers Care Business Support Specialist Name Role Phone Unavailable Primary Care Provider Unavailabl e Social History Tobacco Use Types Packs/Day Years Used Date Smoking Tobacco: Never Assessed Comments Unknown Sex and Gender Information Value Date Recorded Sex Assigned at Not on file Legal Sex Female 7:15 PM CDT Gender Identity Not on file Sexual Orientation Not on file Plan of Treatment Health Maintenance Due Date Last Done Comments DTaP, Tdap and Td Vaccines ( 1 - Tdap) 1957 Zoster Vaccines (1 of 2) 01/20/1988 Pneumococcal Vaccine: 65+ Ye ars (1 of 1 - PCV) 2003 RSV Immunization or 60+ Years (1 - 1-dose 75+ series) 2013 COVID-19 Vaccine ( - 2023-2 5 season) 2024 Influenza Adult (#1) 2024 Meningococcal B Vaccine Aged Out No l onger eligible based on patient's age to complete this topic Meningococcal Vaccine Aged Out No eun bridgett eligible based on patient's age to complete this topic RSV Immunizations Under 20 Months Aged Out No longer eligible based on patient's age to complete this topic
--- OUTSIDE RECORDS SUMMARY | 2024-07-31 00:09 | XMS_ITS | Continuity of Care Document ---
Author Name Auto Generated, Auto Generated Organization [facility] Support Name Relationship Address Phone PulliamAlisonMariangel Daughter [phone] [place] [address] Mariangel Pulliam [employer] [address] [place] [address] GhadaSid Emergency Contact [address] [place] [address] GhadaSid Son [address] [place] [address] Darlene Urrutia Daughter [address] [place] [address] Unavailable Jackie Urrutia Self [address] [place] [address] Mariangel Pulliam Emergency Contact [address] [phone] [place] [address] Mariangel Pulliam Financial Responsible Republican [address] [place] [address] Mariangel Pulliam Statement Copy [phone] [place] [address] Sid Urrutia [facility] [address] [place] [address] GhadaKhris Emergency Contact [address] [place] [address] Unavailable Khris Urrutia Grandchild [address] [place] [address] Unavailable Summary Purpose Consult/Referral Allergies, Adverse Reactions, Alerts Type Description/Agent Code Date Allergy Active Date Allergy Inactivated Date of Last Reaction Adverse Reactions Severity Status Comments Source of Information [employer] No Known Drug Allergies Active Patien t History Medications Medications Prescription Date Begun Date Discontinued Status Associated Diagnoses Ordering Provider Anti-Diarrheal (loperamide) 2 mg tablet 2mg PRN (Max 8 Doses) 07/06/19 25 Active MD Dipak Parmar ergocalciferol (vitamin D2) 1,250 mcg (50,000 unit) capsule 1 1 Time Weekly 06/16/19 25 Active MD Dipak Parmar dilTIAZem CD 240 mg capsule,extended release 24 hr 1 CAPSULE 1 Time Daily 09/02/19 24 Active MD Dipak Parmar acetaminophen 325 mg tablet 2 TABLETS 2 Times Daily 09/02/19 24 Active MD Dipak Parmar FeroSuL 325 mg (65 mg iron) tablet 1 tablet 1 Time Daily 02/05/20 23 Active MD Dipak Parmar ramipriL 10 mg capsule 2 CAPSULE 1 Time Daily 02/05/20 23 Active MD Dipak Parmar memantine 10 mg tablet 1 TABLET 2 Times Daily 02/04/20 23 Active MD Dipak Parmar polyethylene glycoL 3350 17 gram/dose oral powder 17GM PRN 1 Time Daily 02/04/20 23 Active MD Dipak Parmar ondansetron 8 mg disintegrating tablet 1 tablet PRN Every 8 Hours 02/04/20 23 Active MD Dipak Parmar Conditions/Problems Problem/Diagnosis Awareness of Diagnosis Code (ICD-10) Onset Date (Start Date) Resolution Date (End Date) Status Source Comments MUSCLE WEAKNESS (GENERALIZED) M62.81 02/05/20 23 Active MD Dipak Parmar NAUSEA WITH VOMITING, UNSPECIFIED R11.2 02/03/20 23 Active MD Dipak Parmar PERSONAL HISTORY OF (HEALED) TRAUMATIC FRACTURE Z87.81 01/19/20 23 Active MD Dipak Parmar PERSONAL HISTORY OF (HEALED) TRAUMATIC FRACTURE Z87.81 01/19/20 23 2023 Resolved MD Dipak Parmar S32.591 SLOW TRANSIT CONSTIPATION K59.01 01/19/20 23 Active MD Dipak Parmar DRUG INDUCED CONSTIPATION K59.03 01/19/20 23 Active MD Dipak Parmar ADVERSE EFFECT OF OTHER OPIOIDS, SUBSEQUENT ENCOUNTER T40.2X5D 01/19/20 23 Active MD Dipak Parmar UNSPECIFIED HEARING LOSS, UNSPECIFIED EAR H91.90 08/14/20 23 Active MD Dipak Parmar IRON DEFICIENCY ANEMIA, UNSPECIFIED D50.9 01/19/20 Active MD Dipak Parmar SPRAIN OF CARPAL JOINT OF LEFT WRIST, SUBSEQUENT ENCOUNTER S63.512D 01/15/20 23 04/14/2023 Resolved MD Dipak Parmar UNSPECIFIED FALL, SUBSEQUENT ENCOUNTER W19.XXXD 01/15/20 23 04/14/2023 Resolved MD Dipak Parmar UNSPECIFIED NONDISPLACED FRACTURE OF SECOND CERVICAL VERTEBRA, SUBSEQUENT ENCOUNTER FOR FRACTURE WITH ROUTINE HEALING S12.101D 01/15/20 23 04/14/2023 Resolved MD Dipak Parmar UNSPECIFIED FRACTURE OF THE LOWER END OF LEFT RADIUS, SUBSEQUENT ENCOUNTER FOR CLOSED FRACTURE WITH ROUTINE HEALING S52.502D 01/15/20 23 04/14/2023 Resolved MD Dipak Parmar OTHER SPECIFIED FRACTURE OF RIGHT PUBIS, SUBSEQUENT ENCOUNTER FOR FRACTURE WITH ROUTINE HEALING S32.591D 01/15/20 23 04/14/2023 Resolved MD Dipak Parmar URINARY TRACT INFECTION, SITE NOT SPECIFIED N39.0 10/17/19 23 2023 Resolved MD Dipak Parmar UNSPECIFIED ESCHERICHIA COLI [E. COLI] THE CAUSE OF DISEASES CLASSIFIED ELSEWHERE B96.20 10/17/19 23 2023 Resolved MD Dipak Parmar FREQUENCY OF MICTURITION R35.0 10/17/19 23 2023 Resolved MD Dipak Parmar POSTNASAL DRIP R09.82 10/06/19 23 2023 Resolved MD Dipak Parmar OTHER SPECIFIED COUGH R05.8 10/06/19 23 2023 Resolved MD Dipak Parmar OTHER SEASONAL ALLERGIC RHINITIS J30.2 02/12/20 22 Active MD Dipak Parmar AGE-RELATED PHYSICAL DEBILITY R54 02/12/20 22 2023 Resolved MD Dipak Parmar REPEATED FALLS R29.6 02/12/20 22 Active MD Dipak Parmar URINARY TRACT INFECTION, SITE NOT SPECIFIED N39.0 10/19/19 22 02/11/2022 Resolved MD Dipak Parmar KLEBSIELLA PNEUMONIAE [K. PNEUMONIAE] THE CAUSE OF DISEASES CLASSIFIED ELSEWHERE B96.1 10/19/19 22 02/11/2022 Resolved MD Dipak Parmar GENERALIZED ANXIETY DISORDER F41.1 10/19/19 22 Active MD Dipak Parmar MUSCLE WEAKNESS (GENERALIZED) M62.81 02/01/20 21 02/11/2022 Resolved MD Dipak Parmar WEAKNESS R53.1 02/01/20 21 02/11/2022 Resolved MD Dipak Parmar AGE-RELATED PHYSICAL DEBILITY R54 01/23/20 21 02/11/2022 Resolved MD Dipak Parmar VITAMIN D DEFICIENCY, UNSPECIFIED E55.9 01/23/20 21 Active MD Dipak Parmar HYPERTENSIVE HEART AND CHRONIC KIDNEY DISEASE WITH HEART FAILURE AND STAGE 1 THROUGH STAGE 4 CHRONIC KIDNEY DISEASE, OR UNSPECIFIED CHRONIC KIDNEY DISEASE I13.0 01/23/20 21 Active MD Dipak Parmar CHRONIC KIDNEY DISEASE, STAGE 2 (MILD) N18.2 01/23/20 21 Active MD Dipak Parmar 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 01/23/20 21 Active MD Dipak Parmar DEMENTIA IN OTHER DISEASES CLASSIFIED ELSEWHERE, UNSPECIFIED SEVERITY, WITHOUT BEHAVIORAL DISTURBANCE, PSYCHOTIC DISTURBANCE, MOOD DISTURBANCE, AND ANXIETY F02.80 01/23/20 21 Active MD Dipak Parmar HYPERLIPIDEMIA, UNSPECIFIED E78.5 01/23/20 21 Active MD Dipak Parmar UNSPECIFIED OSTEOARTHRITIS, UNSPECIFIED SITE M19.90 01/23/20 21 Active MD Dipak Parmar 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
--- NOTE | 2024-07-31 00:10 | ED.FALL ---
HPI - Fall General Chief Complaint: Fall <Suzan Hernandez PA-C - Last Filed: 07/31/24 04:00> Stated Complaint: fall, head injury <Suzan Hernandez PA-C - Last Filed: 07/31/24 04:00> Time Seen by Provider: 07/30/24 23:03 <Suzan Hernandez PA-C - Last Filed: 07/31/24 04:00> Related Data Home Medications: Home Medications ?Medication ?Instructions ?Recorded ?Confirmed ?Last Taken ?Type ramipril 10 mg capsule 20 mg PO DAILY 07/02/19 07/31/24 Unknown History acetaminophen 325 mg capsule 650 mg PO BID 07/31/24 07/31/24 Unknown History diltiazem HCl 240 mg 240 mg PO Q24H 07/31/24 07/31/24 Unknown History capsule,extended release 24 hr ergocalciferol (vitamin D2) 1,250 1,250 mcg PO WEEKLY 07/31/24 07/31/24 Unknown History mcg (50,000 unit) capsule ferrous sulfate 325 mg (65 mg 325 mg PO DAILY 07/31/24 07/31/24 Unknown History iron) tablet (Feosol) loperamide 2 mg capsule 2 mg PO Q3H PRN loose stool 07/31/24 07/31/24 Unknown History (Anti-Diarrheal (loperamide)) memantine 10 mg tablet 10 mg PO BID 07/31/24 07/31/24 Unknown History ondansetron 8 mg disintegrating 8 mg PO Q8H PRN nausea and vomiting 07/31/24 07/31/24 Unknown History tablet polyethylene glycol 3350 17 17 g PO DAILY PRN constipation 07/31/24 07/31/24 Unknown History gram/dose oral powder (Miralax) <Suzan Hernandez PA-C - Last Filed: 07/31/24 04:00> Allergies/Adverse Reactions: Allergies Allergy/AdvReac Type Severity Reaction Status Date / Time No Known Allergies Allergy Verified 07/31/24 05:44 <Suzan Hernandez PA-C - Last Filed: 07/31/24 04:00> [facility] Past Medical History Medical History: Medical History CHF (congestive heart failure) Dementia Hyperlipidemia Hypertension <Suzan Hernandez PA-C - Last Filed: 07/31/24 04:00> Surgical History Surgical History: Surgical History History of hip replacement <Suzan Hernandez PA-C - Last Filed: 07/31/24 04:00> Family History Family History: Family History Sibling Family history of malignant neoplasm Mother Carcinoma of colon Other Family history of malignant neoplasm of breast in first degree relative <Suzan Hernandez PA-C - Last Filed: 07/31/24 04:00> Social History Social History: Social History Smoking status: Never smoker Smoking end date: 06/07/77 Alcohol intake: never <Suzan Hernandez PA-C - Last Filed: 07/31/24 04:00> 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 I was available for consultation, but was not directly involved with patient's care nor did I evaluate the patient. <North Ricks MD - Last Filed: 07/31/24 07:29> Consultations Consultation #1: Spoke with hospitalist about patient and workup who accepts admission <Suzan Hernandez PA-C - Last Filed: 07/31/24 04:00> Date: 07/31/24 <Suzan Hernandez PA-C - Last Filed: 07/31/24 04:00> Vital Signs Vital signs: Vital Signs Temperature 38.4 C H 07/30/24 23:11 Pulse Rate 104 H 07/30/24 23:11 Respiratory Rate 16 07/30/24 23:11 Blood Pressure 194/102 H 07/30/24 23:11 Pulse Oximetry 95 07/30/24 23:11 Oxygen Delivery Room Air 07/30/24 23:11 Temperature 36.7 C 07/31/24 06:15 Pulse Rate 63 07/31/24 06:15 Respiratory Rate 13 07/31/24 06:15 Blood Pressure 165/68 H 07/31/24 06:15 Pulse Oximetry 98 07/31/24 06:15 Oxygen Delivery Room Air 07/30/24 23:11 <Suzan Hernandez PA-C - Last Filed: 07/31/24 04:00> Vital Signs Temperature 38.4 C H 07/30/24 23:11 Pulse Rate 104 H 07/30/24 23:11 Respiratory Rate 16 07/30/24 23:11 Blood Pressure 194/102 H 07/30/24 23:11 Pulse Oximetry 95 07/30/24 23:11 Oxygen Delivery Room Air 07/30/24 23:11 Temperature 36.7 C 07/31/24 06:15 Pulse Rate 63 07/31/24 06:15 Respiratory Rate 13 07/31/24 06:15 Blood Pressure 165/68 H 07/31/24 06:15 Pulse Oximetry 98 07/31/24 06:15 Oxygen Delivery Room Air 07/30/24 23:11 <North Ricks MD - Last Filed: 07/31/24 07:29> MDM - Fall MDM Narrative Medical decision making narrative: Patient presents to the emergency department for generalized weakness, fevers, fall with head injury. Febrile to 101 in the ER. Mildly tachycardic, this normalized with antipyretic. Cbc without leukocytosis. Metabolic panel without concerning findings. Patient is influenza A positive. Urine concerning for infection. Patient started on IV antibiotics. Blood cultures obtained. CT brain and cervical spine without acute findings. Chest, pelvis, left elbow x-rays without acute findings. Spoke with hospitalist about patient and workup who accepts admission <Suzan Hernandez PA-C - Last Filed: 07/31/24 04:00> Differential Diagnosis Differential diagnosis: Likely concussion without loss of consciousness and other (Subdural hematoma, cervical strain, cervical spine fracture, elbow fracture, elbow contusion, UTI, dehydration, influenza, COVID) <Suzan Hernandez PA-C - Last Filed: 07/31/24 04:00> Lab Data Attestation: I reviewed the patient's lab results. <Suzan Hernandez PA-C - Last Filed: 07/31/24 04:00> Result diagrams: 07/31/24 00:14 07/31/24 00:14 <Suzan Hernandez PA-C - Last Filed: 07/31/24 04:00> Labs: Lab Results 07/31/24 Range/Units 00:14 WBC 7.2 (4.5-10.0) K/mm3 RBC 3.87 L (4.2-5.4) M/mm3 Hgb 11.7 L (12.0-15.0) g/dL Hct 36.5 L (37.0-47.0) % MCV 94.3 (80-100) fl MCH 30.2 (26-34) pg MCHC 32.1 (32-36) g/dl RDW 13.2 (11.5-14.5) % Plt Count 247 (150-375) k/mm3 MPV 9.2 (7.4-10.4) fl Immature Gran % (Auto) 0.3 (0-0.5) % Neut % (Auto) 76.1 H (45.5-73.1) % Lymph % (Auto) 9.5 L (18.3-44.2) % [place] % (Auto) 12.4 H (2.6-8.5) % Eos % (Auto) 1.1 (0-4.4) % Baso % (Auto) 0.6 (0.2-1.2) % Lymph # (Auto) 0.68 L (0.9-3.2) K/mm3 [place] # (Auto) 0.9 H (0.1-0.6) K/mm3 Eos # (Auto) 0.1 (0-0.3) K/mm3 Baso # (Auto) 0.0 (0.0-0.1) K/mm3 Abs Immat Gran (auto) 0.02 (0.00-0.031) K/mm3 Absolute Neuts (auto) 5.5 (1.3-6.7) K/mm3 Absolute Nucleated RBC 0.000 (0.0-0.012) K/mm3 Nucleated RBC % 0.0 (0.0-0.2) % Sodium 136 L (137-145) mmol/L Potassium 4.0 (3.4-5.0) mmol/L Chloride 102 (98-107) mmol/L Carbon Dioxide 25 (22-30) mmol/L Anion Gap 9 (4-12) mmol/L BUN 17 (7-17) mg/dL Creatinine 0.74 (0.7-1.0) mg/dL Estim Creat Clear Calc Not Reportable Estimated GFR > 60 (59 - ) Glucose 107 (65-110) mg/dL Calcium 8.8 (8.4-10.2) mg/dL Total Bilirubin 0.6 (0.2-1.3) mg/dL AST 27 (14-36) U/L ALT 19 (6-35) U/L Alkaline Phosphatase 78 (38-126) U/L Total Protein 7.0 (6.3-8.2) g/dL Albumin 3.9 (3.5-5.1) g/dL Urine Color Neetu (Yellow) Urine Appearance Turbid H (Clear) Urine pH 8.0 (5.0-9.0) Ur Specific [place] 1.011 (1.001-1.035) Urine Protein 1+ H (Negative) mg/dL Urine Glucose (UA) Negative (Negative) mg/dL Urine Ketones Negative (Negative) mg/dL Ur Blood (Man) 1+ H (Negative) Urine Nitrate Negative (Negative) Urine Bilirubin Negative (Negative) Urine Urobilinogen 0.2 (<2.0) mg/dL Leukocyte Esterase Rfl 1+ H (Negative) ERWIN/UL Urine RBC 11-20 H (0-2) /hpf Urine WBC 11-20 H (0-3) /hpf Ur Squamous Epith Cells None seen (Few) /hpf Urine Bacteria 4+ H /hpf Urine Casts 0-2 Influenza A (RT-PCR) Positive A (Negative) Influenza B (RT-PCR) Negative (Negative) RSV (RT-PCR) Negative (Negative) SARS-CoV-2 RNA (RT-PCR) Negative (Negative) <Suzan Hernandez PA-C - Last Filed: 07/31/24 04:00> Lab Results 07/31/24 Range/Units 00:14 WBC 7.2 (4.5-10.0) K/mm3 RBC 3.87 L (4.2-5.4) M/mm3 Hgb 11.7 L (12.0-15.0) g/dL Hct 36.5 L (37.0-47.0) % MCV 94.3 (80-100) fl MCH 30.2 (26-34) pg MCHC 32.1 (32-36) g/dl RDW 13.2 (11.5-14.5) % Plt Count 247 (150-375) k/mm3 MPV 9.2 (7.4-10.4) fl Immature Gran % (Auto) 0.3 (0-0.5) % Neut % (Auto) 76.1 H (45.5-73.1) % Lymph % (Auto) 9.5 L (18.3-44.2) % [place] % (Auto) 12.4 H (2.6-8.5) % Eos % (Auto) 1.1 (0-4.4) % Baso % (Auto) 0.6 (0.2-1.2) % Lymph # (Auto) 0.68 L (0.9-3.2) K/mm3 [place] # (Auto) 0.9 H (0.1-0.6) K/mm3 Eos # (Auto) 0.1 (0-0.3) K/mm3 Baso # (Auto) 0.0 (0.0-0.1) K/mm3 Abs Immat Gran (auto) 0.02 (0.00-0.031) K/mm3 Absolute Neuts (auto) 5.5 (1.3-6.7) K/mm3 Absolute Nucleated RBC 0.000 (0.0-0.012) K/mm3 Nucleated RBC % 0.0 (0.0-0.2) % Sodium 136 L (137-145) mmol/L Potassium 4.0 (3.4-5.0) mmol/L Chloride 102 (98-107) mmol/L Carbon Dioxide 25 (22-30) mmol/L Anion Gap 9 (4-12) mmol/L BUN 17 (7-17) mg/dL Creatinine 0.74 (0.7-1.0) mg/dL Estim Creat Clear Calc Not Reportable Estimated GFR > 60 (59 - ) Glucose 107 (65-110) mg/dL Calcium 8.8 (8.4-10.2) mg/dL Total Bilirubin 0.6 (0.2-1.3) mg/dL AST 27 (14-36) U/L ALT 19 (6-35) U/L Alkaline Phosphatase 78 (38-126) U/L Total Protein 7.0 (6.3-8.2) g/dL Albumin 3.9 (3.5-5.1) g/dL Urine Color [place] (Yellow) Urine Appearance Turbid H (Clear) Urine pH 8.0 (5.0-9.0) Ur Specific [place] 1.011 (1.001-1.035) Urine Protein 1+ H (Negative) mg/dL Urine Glucose (UA) Negative (Negative) mg/dL Urine Ketones Negative (Negative) mg/dL Ur Blood (Man) 1+ H (Negative) Urine Nitrate Negative (Negative) Urine Bilirubin Negative (Negative) Urine Urobilinogen 0.2 (<2.0) mg/dL Leukocyte Esterase Rfl 1+ H (Negative) ERWIN/UL Urine RBC 11-20 H (0-2) /hpf Urine WBC 11-20 H (0-3) /hpf Ur Squamous Epith Cells None seen (Few) /hpf Urine Bacteria 4+ H /hpf Urine Casts 0-2 Influenza A (RT-PCR) Positive A (Negative) Influenza B (RT-PCR) Negative (Negative) RSV (RT-PCR) Negative (Negative) SARS-CoV-2 RNA (RT-PCR) Negative (Negative) <North Ricks MD - Last Filed: 07/31/24 07:29> Imaging Data Radiologist's impression: CT brain: No evidence of acute intracranial abnormality. No ICH, mass effect or edema. No skull fracture. Chronic microvascular ischemic changes. Atrophy. Left parietal scalp hematoma CT cervical spine: No evidence of acute fracture or traumatic subluxation. No high-grade central canal stenosis. Multilevel spondylosis <Suzan Hernandez PA-C - Last Filed: 07/31/24 04:00> Critical Care Time Critical Care Time Critical Care Time: No <Suzan Hernandez PA-C - Last Filed: 07/31/24 04:00> Discharge Plan Discharge Clinical Impression: Acute UTI, Influenza A Head injury Qualifiers: Encounter type: initial encounter Qualified Code(s): S09.90XA - Unspecified injury of head, initial encounter <Suzan Hernandez PA-C - Last Filed: 07/31/24 04:00> Patient Disposition: Still a Patient <JOHANA Urbano Last Filed: 07/31/24 04:00> Condition: Stable <Suzan Hernandez PA-C - Last Filed: 07/31/24 04:00>
[2024-07-31 00:22] LABS: Basophils Percent Auto 0.6 % (0.2-1.2); Eosinophils Absolute Auto 0.1 K/mm3 (0-0.3); Eosinophils Percent Auto 1.1 % (0-4.4); Hematocrit 36.5 % (37.0-47.0); Hemoglobin 11.7 g/dL (12.0-15.0); Immature Granulocyte Absolute 0.02 K/mm3 (0.00-0.031); Immature Granulocyte Percent A 0.3 % (0-0.5); Lymphocytes Absolute Auto 0.68 K/mm3 (0.9-3.2); Lymphocytes Percent Auto 9.5 % (18.3-44.2); Mean Corpuscular HGB Conc 32.1 g/dl (32-36); Mean Corpuscular Hemoglobin 30.2 pg (26-34); Mean Corpuscular Volume 94.3 fl (80-100); Mean Platelet Volume 9.2 fl (7.4-10.4); Monocytes Absolute Auto 0.9 K/mm3 (0.1-0.6); Monocytes Percent Auto 12.4 % (2.6-8.5); Neutrophils Absolute Auto 5.5 K/mm3 (1.3-6.7); Neutrophils Percent Auto 76.1 % (45.5-73.1); Platelet Count Result 247 k/mm3 (150-375); Red Blood Count 3.87 M/mm3 (4.2-5.4); Red Cell Distribution Width 13.2 % (11.5-14.5); White Blood Count 7.2 K/mm3 (4.5-10.0)
[2024-07-31 00:29] LABS: Bacteria Urine 4+ /hpf; Non Pathogenic Casts 0-2; Squamous Epithelial Cell Urine None Seen /hpf (Few)
[2024-07-31 00:30] LABS: Add Urine Microscopic? YES; Appearance Urine Turbid (Clear); Bilirubin Urine Negative (Negative); Blood Urine 1+ (Negative); Glucose Urine UA Negative (Negative); Ketones Urine Negative (Negative); Leukocyte Esterase Ur 1+ LEU/UL (Negative); Nitrate Urine Negative (Negative); Protein Urine 1+ mg/dL (Negative); Specific Grav Ur 1.011 (1.001-1.035); Urobilinogen Urine 0.2 mg/dL (<2.0)
[2024-07-31] MEDS: ACETAMINOPHEN 500 MG TABLET 1000 MG PO (00:31)
[2024-07-31 00:34] LABS: Color Urine Amber (Yellow)
[2024-07-31 00:50] LABS: Alanine Aminotransferase 19 U/L (6-35); Albumin Level 3.9 g/dL (3.5-5.1); Alkaline Phosphatase 78 U/L (38-126); Anion Gap 9 mmol/L (4-12); Aspartate Amino Transferase 27 U/L (14-36); Bilirubin,Total 0.6 mg/dL (0.2-1.3); Blood Urea Nitrogen 17 mg/dL (7-17); Calcium 8.8 mg/dL (8.4-10.2); Carbon Dioxide 25 mmol/L (22-30); Chloride 102 mmol/L (98-107); Estimated Glomerular Filt Rate > 60; Glucose 107 mg/dL (65-110); Sodium 136 mmol/L (137-145)
[2024-07-31 00:59] LABS: Influenza A QL RT-PCR Positive (Negative); Influenza B QL RT-PCR Negative (Negative); RSV RNA, RT-PCR Negative (Negative); SARS-CoV-2 RNA PCR Negative (Negative)
--- NOTE | 2024-07-31 01:42 | PC.NURSE ---
Pt straight stuck in left and right arm for two sets of blood cultures
[2024-07-31] MEDS: OSELTAMIVIR PHOSPHATE 75 MG CAPSULE PO (01:44)
--- NOTE | 2024-07-31 03:06 | PC.NURSE ---
Pt extremely confused, pt A&O x 2 and states I should call my , I don't even know if he is alive actually
--- NOTE | 2024-07-31 05:13 | PC.NURSE ---
Informed Tisha From [place] of pts admission, she states pts baseline is A&O x 2-3
--- NOTE | 2024-07-31 06:14 | P.HP_ITS ---
H&P: HPI History of Present Illness Date/Time: 07/31/24 06:14 Chief Complaint: 1. Fall 2. Head swelling Narrative: Jackie Urrutia is a 84 F with a mHx significant for A-fib, CHAS, unstable gait, dementia, hypertension She while at the [facility] suffered a fall and in the process hit the left side of her head on the floor; there was no records of LOC, chest pain, dizziness, seizure-like activity, focal weakness or speech disturbance. There were no fevers, chills, dysuria, flank pain, hematuria, skin/joint changes. She does not smoke/chew tobacco, drink alcohol or consume recreational/illicit drugs Work-up findings: Influenza a: Positive UA: 11-20 WBC; 1+ leukocyte esterase; 4+ bacteria CMP Unremarkable CBC remarkable for hb 11, PLT 247 CXR, Pelvis XR, head CT, Left elbow XR: Unremarkable Jackie Urrutia will be admitted, evaluated and managed for a left parietal hematoma post-fall, Influenza A infetion and UTI PMF Past Medical History Medical History CHF (congestive heart failure) Dementia Hyperlipidemia Hypertension Surgical History Surgical History History of hip replacement Family History Family History Sibling Family history of malignant neoplasm Mother Carcinoma of colon Other Family history of malignant neoplasm of breast in first degree relative Social History Social History Smoking status: Never smoker Smoking end date: 06/07/77 Alcohol intake: never Meds Home Medications and Allergies Home Medications ?Medication ?Instructions ?Recorded ?Confirmed ?Type ramipril 10 mg capsule 20 mg PO DAILY 07/02/19 07/31/24 History acetaminophen 325 mg capsule 650 mg PO BID 07/31/24 07/31/24 History diltiazem HCl 240 mg 240 mg PO Q24H 07/31/24 07/31/24 History capsule,extended release 24 hr ergocalciferol (vitamin D2) 1,250 1,250 mcg PO WEEKLY 07/31/24 07/31/24 History mcg (50,000 unit) capsule ferrous sulfate 325 mg (65 mg 325 mg PO DAILY 07/31/24 07/31/24 History iron) tablet (Feosol) loperamide 2 mg capsule 2 mg PO Q3H PRN loose stool 07/31/24 07/31/24 History (Anti-Diarrheal (loperamide)) memantine 10 mg tablet 10 mg PO BID 07/31/24 07/31/24 History ondansetron 8 mg disintegrating 8 mg PO Q8H PRN nausea and vomiting 07/31/24 07/31/24 History tablet polyethylene glycol 3350 17 17 g PO DAILY PRN constipation 07/31/24 07/31/24 History gram/dose oral powder (Miralax) Allergies Allergy/AdvReac Type Severity Reaction Status Date / Time No Known Allergies Allergy Verified 07/31/24 05:44 Vital Signs Vital Signs - 24 hr 07/30/24 23:11 07/31/24 01:00 07/31/24 03:01 Temperature 101.1 F H Pulse Rate 104 H 98 94 Respiratory Rate 16 16 20 Blood Pressure 194/102 H 174/85 H 152/81 H Pulse Oximetry 95 94 97 Oxygen Delivery Room Air 07/31/24 03:02 07/31/24 05:06 Temperature Pulse Rate 88 Respiratory Rate 18 18 Blood Pressure 152/81 H Pulse Oximetry 96 97 Oxygen Delivery H&P: Results Labs Labs: Short CBC 07/31/24 Range/Units 00:14 WBC 7.2 (4.5-10.0) K/mm3 Hgb 11.7 L (12.0-15.0) g/dL Hct 36.5 L (37.0-47.0) % Plt Count 247 (150-375) k/mm3 BMP 07/31/24 00:14 Sodium 136 L Potassium 4.0 Chloride 102 Carbon Dioxide 25 BUN 17 Creatinine 0.74 Glucose 107 Calcium 8.8 Liver Function 07/31/24 Range/Units 00:14 Total Bilirubin 0.6 (0.2-1.3) mg/dL AST 27 (14-36) U/L ALT 19 (6-35) U/L Alkaline Phosphatase 78 (38-126) U/L Albumin 3.9 (3.5-5.1) g/dL Urine 07/31/24 Range/Units 00:14 Urine Color [place] (Yellow) Urine Appearance Turbid H (Clear) Urine pH 8.0 (5.0-9.0) Ur Specific [place] 1.011 (1.001-1.035) Urine Protein 1+ H (Negative) mg/dL Urine Glucose (UA) Negative (Negative) mg/dL Assessment and Plan Assessment and plan (1) Influenza A: Code(s): J10.1 - Influenza due to other identified influenza virus with other respiratory manifestations Status: Acute (2) Acute UTI: Code(s): N39.0 - Urinary tract infection, site not specified Status: Acute (3) Head injury: Qualifiers: Encounter type: initial encounter Qualified Code(s): S09.90XA - Unspecified injury of head, initial encounter Code(s): S09.90XA - Unspecified injury of head, initial encounter Status: Acute Plan Acute and principal conditions 1. Fall; Unstable gait 2. Left parietal scalp hematoma 3. Encephalopathy; acute on chronic 4. UTI 5. Influenza A infection Rx A. IVFs; B. oseltamivir, Ceftriaxone C. Blood and urine culture D. PT/OT eval and Rx Chronic and stable conditions 1. Hammer toes 2. Unstable gait 3. A-fib. resume Diltiazem, Rivaroxaban Miscellaneous care. 1. Code status. DNR 2. VTE prophylaxis. SCDS; resume pharmacologic VTE after a few hours due to hematoma 3. Nutrition. Heart healthy Hospitalist [facility] Advance Care Plan I have confirmed that the patient's Advanced Care Plan is present, code status is documented, or surrogate decision maker is listed in patient medical record.: Yes Medication Reconciliation I have utilized all available resources to obtain, update and review the patients current medications (includes all prescriptions, OTC, herbals, cannabis, and nutritional supplements).: Yes The patient is not eligible for med reconciliation; the patient is in a emergent medical situation where delaying treatment would jeopardize the patients health.: Yes
[2024-07-31] MEDS: SODIUM CHLORIDE 0.9% IV 1,000 ML 100 ML IV CONT ×2 (06:23→17:02)
--- NOTE | 2024-07-31 08:45 | P.PNIM_ITS ---
Progress Note: A&P Assessment and Plan (1) Acute UTI: Code(s): N39.0 - Urinary tract infection, site not specified Status: Acute Assessment and Plan: 07/31/24: * Urine culture pending. * Continue Rocephin 1G Q24 hrs * Trend labs and VS. * Not meeting sepsis criteria. (2) Influenza A: Code(s): J10.1 - Influenza due to other identified influenza virus with other respiratory manifestations Status: Acute Assessment and Plan: 07/31/24: * Continue Tamiflu. * Droplet precautions. * Supportive treatment as needed. (3) Head injury: Qualifiers: Encounter type: initial encounter Qualified Code(s): S09.90XA - Unspecified injury of head, initial encounter Code(s): S09.90XA - Unspecified injury of head, initial encounter Status: Acute Assessment and Plan: 07/31/24: * CT without any acute ICH. * Left Parietal Hematoma present. * Monitor for any Neurological changes. Time Spent With Patient Time with patient: 15 - 25 minutes Subjective Date/time seen: 07/31/24 08:45 Interval history: This pt is examined at the bedside today in interval assessment after being admitted for UTI, FLU A, and Hematoma to the Left parietal scalp after sustaining a fall. She is pleasantly confused and has no acute complaints otherwise. She appears stable and without any acute distress. Review of Systems Review of Systems: All systems reviewed & are unremarkable except as noted in HPI and below Exam Const: General: comfortable and no acute distress Eyes: General: appearance normal, both eyes and all related structures Neck: Neck: supple and no JVD Resp: Effort & Inspection: normal respiratory effort Auscultation: clear to auscultation bilaterally Cardio: Rate: regular rate Rhythm: regular rhythm Heart sounds: no gallops, no murmurs and no rubs GI: Inspection: non-distended GI Palp: Yes Soft to palpation Auscultation: normal bowel sounds Skin: General skin exam: normal color, no rashes or lesions noted and no erythema Lesions: no lesions noted Rashes: no rashes noted Wounds: no wounds Neuro: General: gait normal Speech: normal speech Motor exam (neuro): 5/5 motor strength present throughout and Normal motor muscle tone present throughout Sensory Exam: normal sensation Extrem: General: normal to inspection and no edema Psych: Mental Status: mental status grossly normal Affect: normal affect Objective Data Vital Signs Vital Signs: Vital Signs - 24 hr 07/30/24 23:11 07/31/24 01:00 07/31/24 03:01 Temperature 101.1 F H Pulse Rate 104 H 98 94 Respiratory Rate 16 16 20 Blood Pressure 194/102 H 174/85 H 152/81 H Pulse Oximetry 95 94 97 Oxygen Delivery Room Air 07/31/24 03:02 07/31/24 05:06 07/31/24 06:15 Temperature 98.0 F Pulse Rate 88 63 Respiratory Rate 18 18 13 Blood Pressure 152/81 H 165/68 H Pulse Oximetry 96 97 98 Oxygen Delivery Intake/Output Intake/Output: Intake & Output 07/28/24 07/29/24 07/30/24 07/31/24 23:59 23:59 23:59 23:59 Intake Total 100 Balance 100 Meds/Results Medications: Active Medications Generic Name Dose Route Start Last Admin Trade Name Freq PRN Reason Stop Dose Admin Ceftriaxone Sodium 1 gm in 50 mls @ 100 mls/hr 08/01/24 02:00 Rocephin 1 Gm/Ns 50 Ml IVPB Q24H OTTO Sodium Chloride 1,000 mls @ 100 mls/hr 07/31/24 06:05 07/31/24 06:23 Normal Saline Iv IV CONT 100 mls/hr .Q10H OTTO Administration Melatonin 5 mg 07/31/24 06:04 Melatonin 5 Mg Tablet PO HS PRN Insomnia Oseltamivir Phosphate 30 mg 07/31/24 21:00 Oseltamivir Phosphate 30 Mg Capsule PO 08/04/24 21:01 Q12HR OTTO Prochlorperazine Edisylate 10 mg 07/31/24 06:04 Prochlorperazine Edisylate 10 Mg/2 Ml Vial IV PUSH Q6H PRN Nausea And Vomiting Radiology Results: ITS Impressions Cervical Spine CT 07/31/24 06:24 Impression: No acute fracture. 3 mm anterolisthesis of C4-C5, similar to prior exam. Moderate degenerative change, as above. Head CT 07/31/24 06:26 Impression: No intracranial hemorrhage, mass, or acute infarct. Atrophy and chronic white matter changes, as above. Soft tissue swelling/hematoma in the left parietal scalp. Elbow X-Ray 07/31/24 06:28 Impression: Unremarkable radiographs. Pelvis X-Ray 07/31/24 06:28 Impression: No acute abnormality. Right hip arthroplasty. Degenerative changes, as above. Chest X-Ray 07/31/24 06:29 Impression: Clear lungs. Stable cardiomegaly. Labs Labs: Laboratory Results - last 24 hr 07/31/24 00:14 WBC 7.2 RBC 3.87 L Hgb 11.7 L Hct 36.5 L MCV 94.3 MCH 30.2 MCHC 32.1 RDW 13.2 Plt Count 247 MPV 9.2 Immature Gran % (Auto) 0.3 Neut % (Auto) 76.1 H Lymph % (Auto) 9.5 L [place] % (Auto) 12.4 H Eos % (Auto) 1.1 Baso % (Auto) 0.6 Lymph # (Auto) 0.68 L [place] # (Auto) 0.9 H Eos # (Auto) 0.1 Baso # (Auto) 0.0 Abs Immat Gran (auto) 0.02 Absolute Neuts (auto) 5.5 Absolute Nucleated RBC 0.000 Nucleated RBC % 0.0 Sodium 136 L Potassium 4.0 Chloride 102 Carbon Dioxide 25 Anion Gap 9 BUN 17 Creatinine 0.74 Estim Creat Clear Calc Not Reportable Estimated GFR > 60 Glucose 107 Calcium 8.8 Total Bilirubin 0.6 AST 27 ALT 19 Alkaline Phosphatase 78 Total Protein 7.0 Albumin 3.9 Urine Color Neetu Urine Appearance Turbid H Urine pH 8.0 Ur Specific [place] 1.011 Urine Protein 1+ H Urine Glucose (UA) Negative Urine Ketones Negative Ur Blood (Man) 1+ H Urine Nitrate Negative Urine Bilirubin Negative Urine Urobilinogen 0.2 Leukocyte Esterase Rfl 1+ H Urine RBC 11-20 H Urine WBC 11-20 H Ur Squamous Epith Cells None seen Urine Bacteria 4+ H Urine Casts 0-2 Influenza A (RT-PCR) Positive A Influenza B (RT-PCR) Negative RSV (RT-PCR) Negative SARS-CoV-2 RNA (RT-PCR) Negative Quality VTE Prophylaxis VTE prophylaxis: mechanical ordered
[2024-07-31] MEDS: ACETAMINOPHEN 325 MG TABLET 650 MG PO ×2 (12:40→17:01)
[2024-07-31] MEDS: dilTIAZem HCL CD 240 MG CAP.24HR PO (12:41)
[2024-07-31] MEDS: MEMANTINE 10 MG TABLET PO ×2 (12:41→20:32)
[2024-07-31] MEDS: FERROUS SULFATE 325 MG TABLET DR PO (12:41)
[2024-07-31] MEDS: ramipriL 5 MG CAPSULE 20 MG PO (12:41)
[2024-07-31] MEDS: OSELTAMIVIR PHOSPHATE 30 MG CAPSULE PO (20:32)
[2024-08-01] MEDS: SODIUM CHLORIDE 0.9% IV 1,000 ML 100 ML IV CONT (04:24)
[2024-08-01 06:00] VITALS: BP 173/90; PULSE 80; RESP 18; TEMP 37.2; O2SAT 92
[2024-08-01 06:48] LABS: Basophils Percent Auto 0.4 % (0.2-1.2); Eosinophils Absolute Auto 0.1 K/mm3 (0-0.3); Eosinophils Percent Auto 2.8 % (0-4.4); Hematocrit 35.6 % (37.0-47.0); Hemoglobin 11.3 g/dL (12.0-15.0); Immature Granulocyte Absolute 0.01 K/mm3 (0.00-0.031); Immature Granulocyte Percent A 0.2 % (0-0.5); Lymphocytes Absolute Auto 1.82 K/mm3 (0.9-3.2); Lymphocytes Percent Auto 39.4 % (18.3-44.2); Mean Corpuscular HGB Conc 31.7 g/dl (32-36); Mean Corpuscular Hemoglobin 30.7 pg (26-34); Mean Corpuscular Volume 96.7 fl (80-100); Mean Platelet Volume 9.4 fl (7.4-10.4); Monocytes Absolute Auto 0.7 K/mm3 (0.1-0.6); Neutrophils Absolute Auto 1.9 K/mm3 (1.3-6.7); Neutrophils Percent Auto 41.2 % (45.5-73.1); Platelet Count Result 245 k/mm3 (150-375); Red Blood Count 3.68 M/mm3 (4.2-5.4); Red Cell Distribution Width 13.2 % (11.5-14.5); White Blood Count 4.6 K/mm3 (4.5-10.0)
[2024-08-01 06:56] LABS: Alanine Aminotransferase 18 U/L (6-35); Albumin Level 3.5 g/dL (3.5-5.1); Alkaline Phosphatase 63 U/L (38-126); Anion Gap 8 mmol/L (4-12); Aspartate Amino Transferase 28 U/L (14-36); Bilirubin,Total 0.5 mg/dL (0.2-1.3); Blood Urea Nitrogen 12 mg/dL (7-17); Calcium 8.1 mg/dL (8.4-10.2); Carbon Dioxide 25 mmol/L (22-30); Chloride 108 mmol/L (98-107); Estimated CRCL calculation 51 ml/min; Estimated Glomerular Filt Rate > 60; Glucose 86 mg/dL (65-110); Potassium 3.5 mmol/L (3.4-5.0); Sodium 141 mmol/L (137-145)
[2024-08-01] MEDS: OSELTAMIVIR PHOSPHATE 30 MG CAPSULE PO ×2 (08:10→20:25)
[2024-08-01] MEDS: MEMANTINE 10 MG TABLET PO ×2 (08:10→20:22)
[2024-08-01] MEDS: dilTIAZem HCL CD 240 MG CAP.24HR PO (08:10)
[2024-08-01] MEDS: ramipriL 5 MG CAPSULE 20 MG PO (08:10)
[2024-08-01] MEDS: ACETAMINOPHEN 325 MG TABLET 650 MG PO ×2 (08:10→17:10)
[2024-08-01] MEDS: FERROUS SULFATE 325 MG TABLET DR PO (08:10)
--- NOTE | 2024-08-01 08:45 | P.PNIM_ITS ---
Progress Note: A&P Assessment and Plan (1) Acute UTI: Code(s): N39.0 - Urinary tract infection, site not specified Status: Acute Assessment and Plan: 07/31/24: * Urine culture pending. * Continue Rocephin 1G Q24 hrs * Trend labs and VS. * Not meeting sepsis criteria. 08/01/24: * Urine culture still pending. * Continue Rocephin. * Continue lab and VS trend. (2) Influenza A: Code(s): J10.1 - Influenza due to other identified influenza virus with other respiratory manifestations Status: Acute Assessment and Plan: 07/31/24: * Continue Tamiflu. * Droplet precautions. * Supportive treatment as needed. 08/01/24: * On room air. * Continue supportive treatment. * Droplet precautions. (3) Head injury: Qualifiers: Encounter type: initial encounter Qualified Code(s): S09.90XA - Unspecified injury of head, initial encounter Code(s): S09.90XA - Unspecified injury of head, initial encounter Status: Acute Assessment and Plan: 07/31/24: * CT without any acute ICH. * Left Parietal Hematoma present. * Monitor for any Neurological changes. 08/01/24: * PRN tylenol for pain. * Bruising present to left parietal scalp. * Fall precautions. Time Spent With Patient Time with patient: 15 - 25 minutes Subjective Date/time seen: 08/01/24 08:45 Interval history: Pt very confused today, which is normal for her. She does not know where she is, why or what the current situation is. We are continuing currently to treat her for UTI and influenza A. Urine cx still pending. She continues to receive IV abx. BC preliminarily are negative. No new complaints or concerns. Review of Systems Review of Systems: All systems reviewed & are unremarkable except as noted in HPI and below Exam Const: General: comfortable and no acute distress Eyes: General: appearance normal, both eyes and all related structures Neck: Neck: supple and no JVD Resp: Effort & Inspection: normal respiratory effort Auscultation: clear to auscultation bilaterally Cardio: Rate: regular rate Rhythm: regular rhythm Heart sounds: no gallops, no murmurs and no rubs GI: Inspection: non-distended Auscultation: normal bowel sounds Skin: General skin exam: normal color, no rashes or lesions noted, no erythema, No lesion and No rashes Lesions: no lesions noted Rashes: no rashes noted Wounds: no wounds Neuro: General: gait normal Speech: normal speech Motor exam (neuro): 5/5 motor strength present throughout and Normal motor muscle tone present throughout Sensory Exam: normal sensation Extrem: General: normal to inspection and no edema Psych: Mental Status: mental status grossly normal Affect: normal affect Objective Data Vital Signs Vital Signs: Vital Signs - 24 hr 07/31/24 14:20 07/31/24 20:00 07/31/24 22:00 Temperature 97.1 F L Pulse Rate 75 Respiratory Rate 16 Blood Pressure 168/76 H Pulse Oximetry 95 Oxygen Delivery Room Air Room Air 08/01/24 06:00 Temperature 98.9 F Pulse Rate 80 Respiratory Rate 18 Blood Pressure 173/90 H Pulse Oximetry 92 Oxygen Delivery Intake/Output Intake/Output: Intake & Output 07/29/24 07/30/24 07/31/24 08/01/24 23:59 23:59 23:59 23:59 Intake Total 1580 1100 Balance 1580 1100 Meds/Results Medications: Active Medications Generic Name Dose Route Start Last Admin Trade Name Freq PRN Reason Stop Dose Admin Acetaminophen 650 mg 07/31/24 09:00 08/01/24 08:10 Acetaminophen 325 Mg Tablet PO 650 mg BID OTTO Administration Diltiazem HCl 240 mg 07/31/24 09:00 08/01/24 08:10 Diltiazem Hcl Cd 240 Mg Cap.24hr PO 240 mg Q24H OTTO Administration Ergocalciferol units 07/31/24 09:00 Ergocalciferol 50,000 Units Capsule PO WEEKLY OTTO Ferrous Sulfate 325 mg 07/31/24 09:00 08/01/24 08:10 Ferrous Sulfate [address] PO 325 mg DAILY OTTO Administration Ceftriaxone Sodium 1 gm in 50 mls @ 100 mls/hr 08/01/24 02:00 08/01/24 01:33 Rocephin 1 Gm/Ns 50 Ml IVPB Infused Q24H OTTO Infusion Sodium Chloride 1,000 mls @ 100 mls/hr 07/31/24 06:05 08/01/24 04:24 Normal Saline Iv IV CONT 100 mls/hr .Q10H OTTO Administration Loperamide HCl 2 mg 07/31/24 08:48 Loperamide Hcl 2 Mg Capsule PO Q3H PRN loose stool Melatonin 5 mg 07/31/24 06:04 Melatonin 5 Mg Tablet PO HS PRN Insomnia Memantine 10 mg 07/31/24 09:00 08/01/24 08:10 Memantine 10 Mg Tablet PO 10 mg Q12HR OTTO Administration Miscellaneous Information 0 each 07/31/24 00:01 Need Day Of Week Ergocalciferol Is Given XX 08/30/24 00:00 CLARIFY OTTO Ondansetron HCl 8 mg 07/31/24 08:59 Ondansetron Hcl Odt 4 Mg Tablet PO Q8H PRN nausea and vomiting Oseltamivir Phosphate 30 mg 07/31/24 21:00 08/01/24 08:10 Oseltamivir Phosphate 30 Mg Capsule PO 08/04/24 21:01 30 mg Q12HR OTTO Administration Polyethylene Glycol 17 gm 07/31/24 08:48 Polyethylene Glycol 3350 17 Gm Powd.Pack PO DAILY PRN constipation Prochlorperazine Edisylate 10 mg 07/31/24 06:04 Prochlorperazine Edisylate 10 Mg/2 Ml Vial IV PUSH Q6H PRN Nausea And Vomiting Ramipril 20 mg 07/31/24 09:00 08/01/24 08:10 Ramipril 5 Mg Capsule PO 20 mg DAILY OTTO Administration Radiology Results: ITS Impressions Cervical Spine CT 07/31/24 06:24 Impression: No acute fracture. 3 mm anterolisthesis of C4-C5, similar to prior exam. Moderate degenerative change, as above. Head CT 07/31/24 06:26 Impression: No intracranial hemorrhage, mass, or acute infarct. Atrophy and chronic white matter changes, as above. Soft tissue swelling/hematoma in the left parietal scalp. Elbow X-Ray 07/31/24 06:28 Impression: Unremarkable radiographs. Pelvis X-Ray 07/31/24 06:28 Impression: No acute abnormality. Right hip arthroplasty. Degenerative changes, as above. Chest X-Ray 07/31/24 06:29 Impression: Clear lungs. Stable cardiomegaly. Labs Labs: Laboratory Results - last 24 hr 07/31/24 08/01/24 16:14 06:28 WBC 4.6 RBC 3.68 L Hgb 11.3 L Hct 35.6 L MCV 96.7 MCH 30.7 MCHC 31.7 L RDW 13.2 Plt Count 245 MPV 9.4 Immature Gran % (Auto) 0.2 Neut % (Auto) 41.2 L Lymph % (Auto) 39.4 [place] % (Auto) 16.0 H Eos % (Auto) 2.8 Baso % (Auto) 0.4 Lymph # (Auto) 1.82 [place] # (Auto) 0.7 H Eos # (Auto) 0.1 Baso # (Auto) 0.0 Abs Immat Gran (auto) 0.01 Absolute Neuts (auto) 1.9 Absolute Nucleated RBC 0.000 Nucleated RBC % 0.0 Sodium 141 Potassium 3.5 Chloride 108 H Carbon Dioxide 25 Anion Gap 8 BUN 12 D Creatinine 0.58 L Estim Creat Clear Calc 51 Estimated GFR > 60 Glucose 86 Calcium 8.1 L Magnesium 2.0 Total Bilirubin 0.5 AST 28 ALT 18 Alkaline Phosphatase 63 Total Protein 7.0 Albumin 3.5 Quality VTE Prophylaxis VTE prophylaxis: mechanical ordered
[2024-08-01 14:00] VITALS: BP 141/88; PULSE 81; RESP 18; TEMP 36.9; O2SAT 93
--- NOTE | 2024-08-01 21:31 | PC.NURSE ---
Manual blood pressure 190/84. I did call and leave a message for Paula Hernandez NP about this blood pressure & that there was no PRN medication for hypertension. Pt. admitted with acute UTI, fall with head injury (hematoma to posterior head). Informed Paula that she can call us back at [phone]. [phone] orders if she feels necessary.
[2024-08-01 21:44] VITALS: BP 190/84; PULSE 84; RESP 18; TEMP 36.1; O2SAT 95
[2024-08-02] MEDS: SODIUM CHLORIDE 0.9% IV 1,000 ML 100 ML IV CONT ×2 (01:29→18:38)
[2024-08-02 06:00] VITALS: PULSE 73; RESP 18; TEMP 36.9; O2SAT 94
[2024-08-02 06:18] VITALS: BP 180/86
[2024-08-02 07:21] LABS: Basophils Percent Auto 0.2 % (0.2-1.2); Eosinophils Absolute Auto 0.1 K/mm3 (0-0.3); Eosinophils Percent Auto 1.7 % (0-4.4); Hematocrit 35.6 % (37.0-47.0); Hemoglobin 11.4 g/dL (12.0-15.0); Lymphocytes Percent Auto 37.6 % (18.3-44.2); Mean Corpuscular Hemoglobin 30.5 pg (26-34); Mean Corpuscular Volume 95.2 fl (80-100); Mean Platelet Volume 9.7 fl (7.4-10.4); Monocytes Absolute Auto 0.5 K/mm3 (0.1-0.6); Monocytes Percent Auto 9.6 % (2.6-8.5); Neutrophils Absolute Auto 2.4 K/mm3 (1.3-6.7); Neutrophils Percent Auto 50.9 % (45.5-73.1); Platelet Count Result 244 k/mm3 (150-375); Red Blood Count 3.74 M/mm3 (4.2-5.4); Red Cell Distribution Width 13.1 % (11.5-14.5); White Blood Count 4.8 K/mm3 (4.5-10.0)
[2024-08-02 07:41] LABS: Alanine Aminotransferase 18 U/L (6-35); Albumin Level 3.7 g/dL (3.5-5.1); Alkaline Phosphatase 65 U/L (38-126); Anion Gap 7 mmol/L (4-12); Aspartate Amino Transferase 29 U/L (14-36); Bilirubin,Total 0.6 mg/dL (0.2-1.3); Blood Urea Nitrogen 9 mg/dL (7-17); Calcium 8.2 mg/dL (8.4-10.2); Carbon Dioxide 25 mmol/L (22-30); Chloride 106 mmol/L (98-107); Estimated CRCL calculation 68 ml/min; Estimated Glomerular Filt Rate > 60; Glucose 89 mg/dL (65-110); Potassium 3.3 mmol/L (3.4-5.0); Sodium 138 mmol/L (137-145)
[2024-08-02] MEDS: MEMANTINE 10 MG TABLET PO ×2 (09:19→20:13)
[2024-08-02] MEDS: ACETAMINOPHEN 325 MG TABLET 650 MG PO ×2 (09:19→18:38)
[2024-08-02] MEDS: POTASSIUM CHLORIDE 20 MEQ ER TABLET 40 MEQ PO (09:19)
[2024-08-02] MEDS: OSELTAMIVIR PHOSPHATE 30 MG CAPSULE PO ×2 (09:19→20:15)
[2024-08-02] MEDS: FERROUS SULFATE 325 MG TABLET DR PO (09:19)
[2024-08-02] MEDS: ramipriL 5 MG CAPSULE 20 MG PO (09:19)
[2024-08-02] MEDS: dilTIAZem HCL CD 240 MG CAP.24HR PO (09:19)
[2024-08-02 09:43] LABS: Magnesium 1.8 mg/dL (1.6-2.3)
--- NOTE | 2024-08-02 12:05 | PCPTNOTE ---
On 08/02/24, the student, YOU Corral, provided care and completed [facility] documentation on this patient. I have reviewed the student's documentation and agree with the findings.
--- NOTE | 2024-08-02 12:25 | P.PNIM_ITS ---
Progress Note: A&P Assessment and Plan (1) Acute UTI: Code(s): N39.0 - Urinary tract infection, site not specified Status: Acute Assessment and Plan: 07/31/24: * Urine culture pending. * Continue Rocephin 1G Q24 hrs * Trend labs and VS. * Not meeting sepsis criteria. 08/01/24: * Urine culture still pending. * Continue Rocephin. * Continue lab and VS trend. 08/02/24: * Urine culture negative. * Switch antibiotic to Cephalexin 500 mg PO q 12. (2) Influenza A: Code(s): J10.1 - Influenza due to other identified influenza virus with other respiratory manifestations Status: Acute Assessment and Plan: 07/31/24: * Continue Tamiflu. * Droplet precautions. * Supportive treatment as needed. 08/01/24: * On room air. * Continue supportive treatment. * Droplet precautions. 08/02/24: * On room air. * Continue supportive treatment. * Droplet precautions. * Tamiflu continue * PT/OT (3) Head injury: Qualifiers: Encounter type: initial encounter Qualified Code(s): S09.90XA - Unspecified injury of head, initial encounter Code(s): S09.90XA - Unspecified injury of head, initial encounter Status: Acute Assessment and Plan: 07/31/24: * CT without any acute ICH. * Left Parietal Hematoma present. * Monitor for any Neurological changes. 08/01/24: * PRN tylenol for pain. * Bruising present to left parietal scalp. * Fall precautions. 08/02/24: * PRN tylenol for pain. * Bruising present to left parietal scalp. * Fall precautions. (4) Hypokalemia: Code(s): E87.6 - Hypokalemia Status: Acute Assessment and Plan: * Potassium 3.3. * Potassium Chloride 40 meq PO x 1. * Monitor labs. Subjective Date/time seen: 08/02/24 12:25 Interval history: Patient lying in bed with sitter at bedside. Patient denies chest pain, palpitations, headache, dizziness, nausea, vomiting, or burning with urination. Review of Systems Review of Systems: All systems reviewed & are unremarkable except as noted in HPI and below Exam Const: General: comfortable and no acute distress Resp: Effort & Inspection: normal respiratory effort Auscultation: clear to auscultation bilaterally Cardio: Rate: regular rate Rhythm: regular rhythm GI: GI Palp: Yes Soft to palpation Auscultation: normal bowel sounds Skin: General skin exam: no rashes or lesions noted Neuro: Speech: normal speech Extrem: General: no pedal edema Psych: Affect: normal affect Other: Oriented x 1. Objective Data Vital Signs Vital Signs: Vital Signs - 24 hr 08/01/24 14:00 08/01/24 20:00 08/01/24 21:44 Temperature 98.4 F 97.0 F L Pulse Rate 81 84 Respiratory Rate 18 18 Blood Pressure 141/88 H 190/84 H Pulse Oximetry 93 95 Oxygen Delivery Room Air 08/02/24 06:00 08/02/24 06:18 Temperature 98.4 F Pulse Rate 73 Respiratory Rate 18 Blood Pressure 180/86 H Pulse Oximetry 94 Oxygen Delivery Intake/Output Intake/Output: Intake & Output 07/30/24 07/31/24 08/01/24 08/02/24 23:59 23:59 23:59 23:59 Intake Total 1580 2050 1660 Output Total 5 Balance 1580 2050 1655 Meds/Results Medications: Active Medications Generic Name Dose Route Start Last Admin Trade Name Freq PRN Reason Stop Dose Admin Acetaminophen 650 mg 07/31/24 09:00 08/02/24 09:19 Acetaminophen 325 Mg Tablet PO 650 mg BID OTTO Administration Diltiazem HCl 240 mg 07/31/24 09:00 08/02/24 09:19 Diltiazem Hcl Cd 240 Mg Cap.24hr PO 240 mg Q24H OTTO Administration Ergocalciferol 50,000 units 08/04/24 09:00 Ergocalciferol 50,000 Units Capsule PO Fr@0900 OTTO Ferrous Sulfate 325 mg 07/31/24 09:00 08/02/24 09:19 Ferrous Sulfate [address] PO 325 mg DAILY OTTO Administration Ceftriaxone Sodium 1 gm in 50 mls @ 100 mls/hr 08/01/24 02:00 08/02/24 02:00 Rocephin 1 Gm/Ns 50 Ml IVPB Infused Q24H OTTO Infusion Sodium Chloride 1,000 mls @ 100 mls/hr 07/31/24 06:05 08/02/24 01:29 Normal Saline Iv IV CONT 100 mls/hr .Q10H OTTO Administration Loperamide HCl 2 mg 07/31/24 08:48 Loperamide Hcl 2 Mg Capsule PO Q3H PRN loose stool Melatonin 5 mg 07/31/24 06:04 Melatonin 5 Mg Tablet PO HS PRN Insomnia Memantine 10 mg 07/31/24 09:00 08/02/24 09:19 Memantine 10 Mg Tablet PO 10 mg Q12HR OTTO Administration Ondansetron HCl 8 mg 07/31/24 08:59 Ondansetron Hcl Odt 4 Mg Tablet PO Q8H PRN nausea and vomiting Oseltamivir Phosphate 30 mg 07/31/24 21:00 08/02/24 09:19 Oseltamivir Phosphate 30 Mg Capsule PO 08/04/24 21:01 30 mg Q12HR OTTO Administration Polyethylene Glycol 17 gm 07/31/24 08:48 Polyethylene Glycol 3350 17 Gm Powd.Pack PO DAILY PRN constipation Prochlorperazine Edisylate 10 mg 07/31/24 06:04 Prochlorperazine Edisylate 10 Mg/2 Ml Vial IV PUSH Q6H PRN Nausea And Vomiting Ramipril 20 mg 07/31/24 09:00 08/02/24 09:19 Ramipril 5 Mg Capsule PO 20 mg DAILY OTTO Administration Radiology Results: ITS Impressions Cervical Spine CT 07/31/24 06:24 Impression: No acute fracture. 3 mm anterolisthesis of C4-C5, similar to prior exam. Moderate degenerative change, as above. Head CT 07/31/24 06:26 Impression: No intracranial hemorrhage, mass, or acute infarct. Atrophy and chronic white matter changes, as above. Soft tissue swelling/hematoma in the left parietal scalp. Elbow X-Ray 07/31/24 06:28 Impression: Unremarkable radiographs. Pelvis X-Ray 07/31/24 06:28 Impression: No acute abnormality. Right hip arthroplasty. Degenerative changes, as above. Chest X-Ray 07/31/24 06:29 Impression: Clear lungs. Stable cardiomegaly. Labs Labs: Laboratory Results - last 24 hr 08/02/24 08/02/24 06:55 06:58 WBC 4.8 RBC 3.74 L Hgb 11.4 L Hct 35.6 L MCV 95.2 MCH 30.5 MCHC 32.0 RDW 13.1 Plt Count 244 MPV 9.7 Immature Gran % (Auto) 0.0 Neut % (Auto) 50.9 Lymph % (Auto) 37.6 [place] % (Auto) 9.6 H Eos % (Auto) 1.7 Baso % (Auto) 0.2 Lymph # (Auto) 1.80 [place] # (Auto) 0.5 Eos # (Auto) 0.1 Baso # (Auto) 0.0 Abs Immat Gran (auto) 0.00 Absolute Neuts (auto) 2.4 Absolute Nucleated RBC 0.000 Nucleated RBC % 0.0 Sodium 138 Potassium 3.3 L Chloride 106 Carbon Dioxide 25 Anion Gap 7 BUN 9 Creatinine 0.42 L Estim Creat Clear Calc 68 Estimated GFR > 60 Glucose 89 Calcium 8.2 L Magnesium 1.8 Total Bilirubin 0.6 AST 29 ALT 18 Alkaline Phosphatase 65 Total Protein 7.0 Albumin 3.7 Quality VTE Prophylaxis VTE prophylaxis: mechanical ordered
[2024-08-02 14:00] VITALS: BP 140/64; PULSE 72; RESP 18; TEMP 36.9; O2SAT 95
[2024-08-02] MEDS: CEPHALEXIN 500 MG CAPSULE PO (20:15)
[2024-08-02 21:25] VITALS: BP 230/110; PULSE 100; RESP 16; TEMP 36.6; O2SAT 94
[2024-08-02 21:50] VITALS: BP 210/100
--- NOTE | 2024-08-02 22:52 | PM.EVENT ---
Event Note Event Note Event Note: BP 210/100, hydralazine 10 IV x1 ordered. monitor.
[2024-08-02] MEDS: hydrALAZINE HCL 20 MG/ML VIAL 10 MG IV PUSH (23:14)
[2024-08-03 01:14] VITALS: BP 180/68
[2024-08-03] MEDS: SODIUM CHLORIDE 0.9% IV 1,000 ML 100 ML IV CONT ×2 (04:21→14:44)
[2024-08-03 06:23] VITALS: BP 194/78; PULSE 91; RESP 16; TEMP 37.5; O2SAT 92
[2024-08-03 06:51] LABS: Basophils Percent Auto 0.2 % (0.2-1.2); Eosinophils Absolute Auto 0.1 K/mm3 (0-0.3); Eosinophils Percent Auto 1.5 % (0-4.4); Hematocrit 34.9 % (37.0-47.0); Immature Granulocyte Absolute 0.01 K/mm3 (0.00-0.031); Immature Granulocyte Percent A 0.2 % (0-0.5); Lymphocytes Percent Auto 29.7 % (18.3-44.2); Mean Corpuscular HGB Conc 31.5 g/dl (32-36); Mean Corpuscular Volume 95.1 fl (80-100); Mean Platelet Volume 9.5 fl (7.4-10.4); Monocytes Absolute Auto 0.4 K/mm3 (0.1-0.6); Monocytes Percent Auto 7.4 % (2.6-8.5); Neutrophils Absolute Auto 2.9 K/mm3 (1.3-6.7); Platelet Count Result 243 k/mm3 (150-375); Red Blood Count 3.67 M/mm3 (4.2-5.4); White Blood Count 4.7 K/mm3 (4.5-10.0)
[2024-08-03 07:01] LABS: Alanine Aminotransferase 16 U/L (6-35); Albumin Level 3.5 g/dL (3.5-5.1); Alkaline Phosphatase 63 U/L (38-126); Anion Gap 9 mmol/L (4-12); Aspartate Amino Transferase 26 U/L (14-36); Bilirubin,Total 0.8 mg/dL (0.2-1.3); Blood Urea Nitrogen 9 mg/dL (7-17); Calcium 8.5 mg/dL (8.4-10.2); Carbon Dioxide 23 mmol/L (22-30); Chloride 107 mmol/L (98-107); Estimated CRCL calculation 54 ml/min; Estimated Glomerular Filt Rate > 60; Glucose 88 mg/dL (65-110); Magnesium 1.7 mg/dL (1.6-2.3); Potassium 3.4 mmol/L (3.4-5.0); Sodium 139 mmol/L (137-145)
[2024-08-03 08:00] VITALS: PULSE 91; RESP 16; O2SAT 92
[2024-08-03 08:43] VITALS: BP 184/78
[2024-08-03] MEDS: CEPHALEXIN 500 MG CAPSULE PO ×2 (09:23→20:06)
[2024-08-03] MEDS: dilTIAZem HCL CD 240 MG CAP.24HR PO (09:24)
[2024-08-03] MEDS: POTASSIUM CHLORIDE 20 MEQ ER TABLET 40 MEQ PO (09:24)
[2024-08-03] MEDS: ACETAMINOPHEN 325 MG TABLET 650 MG PO ×2 (09:24→18:05)
[2024-08-03] MEDS: FERROUS SULFATE 325 MG TABLET DR PO (09:24)
[2024-08-03] MEDS: MEMANTINE 10 MG TABLET PO ×2 (09:24→20:06)
[2024-08-03] MEDS: ramipriL 5 MG CAPSULE 20 MG PO (09:24)
[2024-08-03] MEDS: OSELTAMIVIR PHOSPHATE 30 MG CAPSULE PO ×2 (09:25→20:06)
[2024-08-03] MEDS: hydrALAZINE HCL 20 MG/ML VIAL 10 MG IV PUSH ×2 (09:26→20:11)
--- NOTE | 2024-08-03 13:18 | PM.IMPN ---
Progress Note: A&P Assessment and Plan (1) Acute UTI: Code(s): N39.0 - Urinary tract infection, site not specified Status: Acute Assessment and Plan: 07/31/24: Urine culture pending. Continue Rocephin 1G Q24 hrs Trend labs and VS. Not meeting sepsis criteria. 08/01/24: Urine culture still pending. Continue Rocephin. Continue lab and VS trend. 08/02/24: Urine culture negative. Switch antibiotic to Cephalexin 500 mg PO q 12. 08/03/24 Continue Cephalexin 500 mg PO q 12. (2) Influenza A: Code(s): J10.1 - Influenza due to other identified influenza virus with other respiratory manifestations Status: Acute Assessment and Plan: 07/31/24: Continue Tamiflu. Droplet precautions. Supportive treatment as needed. 08/01/24: On room air. Continue supportive treatment. Droplet precautions. 08/02/24: On room air. Continue supportive treatment. Droplet precautions. Tamiflu continue PT/OT 08/03/24: On room air. Continue supportive treatment. Droplet precautions. Tamiflu continue PT/OT (3) Head injury: Qualifiers: Encounter type: initial encounter Qualified Code(s): S09.90XA - Unspecified injury of head, initial encounter Code(s): S09.90XA - Unspecified injury of head, initial encounter Status: Acute Assessment and Plan: 07/31/24: CT without any acute ICH. Left Parietal Hematoma present. Monitor for any Neurological changes. 08/01/24: PRN tylenol for pain. Bruising present to left parietal scalp. Fall precautions. 08/02/24: PRN tylenol for pain. Bruising present to left parietal scalp. Fall precautions. 08/03/24: PRN tylenol for pain. Bruising present to left parietal scalp. Fall precautions. (4) Hypokalemia: Code(s): E87.6 - Hypokalemia Status: Acute Assessment and Plan: Potassium 3.4. Potassium Chloride 40 meq PO x 1. Monitor labs. (5) Hypertension: Code(s): I10 - Essential (primary) hypertension Status: Acute Assessment and Plan: Blood pressure elevated at 184/78 this morning. Patient given Hydralazine 10 mg ivp in addition to Ramipril 20 mg PO daily. Blood pressure improved to 149/74. Monitor blood pressures. Subjective Date/time seen: 08/03/24 13:18 Interval history: Patient lying in bed with son at bedside. Patient denies chest pain, palpitations, headache, dizziness, nausea, vomiting, or burning with urination. Review of Systems Review of Systems: All systems reviewed & are unremarkable except as noted in HPI and below Exam Const: General: comfortable and no acute distress Resp: Effort & Inspection: normal respiratory effort Auscultation: clear to auscultation bilaterally Cardio: Rate: regular rate Rhythm: regular rhythm GI: GI Palp: Yes Soft to palpation Auscultation: normal bowel sounds Skin: General skin exam: no rashes or lesions noted Neuro: Speech: normal speech Extrem: General: no pedal edema Psych: Other: Oriented to person and place. Objective Data Vital Signs Vital Signs: Vital Signs - 24 hr 08/02/24 14:00 08/02/24 20:00 08/02/24 21:25 Temperature 98.5 F 97.8 F Pulse Rate 72 100 Respiratory Rate 18 16 Blood Pressure 140/64 230/110 H Pulse Oximetry 95 94 Oxygen Delivery Room Air 08/02/24 21:50 08/03/24 01:14 08/03/24 06:23 Temperature 99.5 F Pulse Rate 91 Respiratory Rate 16 Blood Pressure 210/100 H 180/68 H 194/78 H Pulse Oximetry 92 Oxygen Delivery 08/03/24 08:00 08/03/24 08:43 Temperature Pulse Rate 91 Respiratory Rate 16 Blood Pressure 184/78 H Pulse Oximetry 92 Oxygen Delivery Room Air Intake/Output Intake/Output: Intake & Output 07/31/24 08/01/24 08/02/24 08/03/24 23:59 23:59 23:59 23:59 Intake Total 1580 0 3150 1691.7 Output Total 5 Balance 1580 0 3145 1691.7 Meds/Results Medications: Active Medications Generic Name Dose Route Start Last Admin Trade Name Freq PRN Reason Stop Dose Admin Acetaminophen 650 mg 07/31/24 09:00 08/03/24 09:24 Acetaminophen 325 Mg Tablet PO 650 mg BID OTTO Administration Cephalexin HCl 500 mg 08/02/24 21:00 08/03/24 09:23 Cephalexin 500 Mg Capsule PO 08/04/24 09:01 500 mg Q12HR OTTO Administration Diltiazem HCl 240 mg 07/31/24 09:00 08/03/24 09:24 Diltiazem Hcl Cd 240 Mg Cap.24hr PO 240 mg Q24H OTTO Administration Ergocalciferol 50,000 units 08/04/24 09:00 Ergocalciferol 50,000 Units Capsule PO Fr@0900 OTTO Ferrous Sulfate 325 mg 07/31/24 09:00 08/03/24 09:24 Ferrous Sulfate [address] PO 325 mg DAILY OTTO Administration Hydralazine HCl 10 mg 08/03/24 08:21 08/03/24 09:26 Hydralazine Hcl 20 Mg/Ml Vial IV PUSH 10 mg Q8H PRN Administration Blood Pressure - High Sodium Chloride 1,000 mls @ 100 mls/hr 07/31/24 06:05 08/03/24 04:21 Normal Saline Iv IV CONT 100 mls/hr .Q10H OTTO Administration Loperamide HCl 2 mg 07/31/24 08:48 Loperamide Hcl 2 Mg Capsule PO Q3H PRN loose stool Melatonin 5 mg 07/31/24 06:04 Melatonin 5 Mg Tablet PO HS PRN Insomnia Memantine 10 mg 07/31/24 09:00 08/03/24 09:24 Memantine 10 Mg Tablet PO 10 mg Q12HR OTTO Administration Ondansetron HCl 8 mg 07/31/24 08:59 Ondansetron Hcl Odt 4 Mg Tablet PO Q8H PRN nausea and vomiting Oseltamivir Phosphate 30 mg 07/31/24 21:00 08/03/24 09:25 Oseltamivir Phosphate 30 Mg Capsule PO 08/04/24 21:01 30 mg Q12HR OTTO Administration Polyethylene Glycol 17 gm 07/31/24 08:48 Polyethylene Glycol 3350 17 Gm Powd.Pack PO DAILY PRN constipation Prochlorperazine Edisylate 10 mg 07/31/24 06:04 Prochlorperazine Edisylate 10 Mg/2 Ml Vial IV PUSH Q6H PRN Nausea And Vomiting Ramipril 20 mg 07/31/24 09:00 08/03/24 09:24 Ramipril 5 Mg Capsule PO 20 mg DAILY OTTO Administration Radiology Results: ITS Impressions Cervical Spine CT 07/31/24 06:24 Impression: No acute fracture. 3 mm anterolisthesis of C4-C5, similar to prior exam. Moderate degenerative change, as above. Head CT 07/31/24 06:26 Impression: No intracranial hemorrhage, mass, or acute infarct. Atrophy and chronic white matter changes, as above. Soft tissue swelling/hematoma in the left parietal scalp. Elbow X-Ray 07/31/24 06:28 Impression: Unremarkable radiographs. Pelvis X-Ray 07/31/24 06:28 Impression: No acute abnormality. Right hip arthroplasty. Degenerative changes, as above. Chest X-Ray 07/31/24 06:29 Impression: Clear lungs. Stable cardiomegaly. Labs Labs: Laboratory Results - last 24 hr 08/03/24 06:32 WBC 4.7 RBC 3.67 L Hgb 11.0 L Hct 34.9 L MCV 95.1 MCH 30.0 MCHC 31.5 L RDW 13.0 Plt Count 243 MPV 9.5 Immature Gran % (Auto) 0.2 Neut % (Auto) 61.0 Lymph % (Auto) 29.7 [place] % (Auto) 7.4 Eos % (Auto) 1.5 Baso % (Auto) 0.2 Lymph # (Auto) 1.40 [place] # (Auto) 0.4 Eos # (Auto) 0.1 Baso # (Auto) 0.0 Abs Immat Gran (auto) 0.01 Absolute Neuts (auto) 2.9 Absolute Nucleated RBC 0.000 Nucleated RBC % 0.0 Sodium 139 Potassium 3.4 Chloride 107 Carbon Dioxide 23 Anion Gap 9 BUN 9 Creatinine 0.54 L Estim Creat Clear Calc 54 Estimated GFR > 60 Glucose 88 Calcium 8.5 Magnesium 1.7 Total Bilirubin 0.8 AST 26 ALT 16 Alkaline Phosphatase 63 Total Protein 7.0 Albumin 3.5 Quality VTE Prophylaxis VTE prophylaxis: mechanical ordered
[2024-08-03 14:00] VITALS: BP 149/74; PULSE 85; RESP 18; TEMP 36.7; O2SAT 97
[2024-08-03] MEDS: MELATONIN 5 MG TABLET PO (20:06)
[2024-08-03 21:11] VITALS: BP 192/98; PULSE 87; RESP 18; TEMP 36.9; O2SAT 94
[2024-08-04] MEDS: SODIUM CHLORIDE 0.9% IV 1,000 ML 100 ML IV CONT (01:05)
[2024-08-04] MEDS: hydrALAZINE HCL 20 MG/ML VIAL 10 MG IV PUSH (04:09)
[2024-08-04 05:43] VITALS: BP 188/72; PULSE 94; RESP 18; TEMP 36.7; O2SAT 94
[2024-08-04 07:29] LABS: Basophils Percent Auto 0.2 % (0.2-1.2); Eosinophils Absolute Auto 0.1 K/mm3 (0-0.3); Eosinophils Percent Auto 1.9 % (0-4.4); Hematocrit 33.1 % (37.0-47.0); Hemoglobin 10.5 g/dL (12.0-15.0); Immature Granulocyte Absolute 0.02 K/mm3 (0.00-0.031); Immature Granulocyte Percent A 0.4 % (0-0.5); Lymphocytes Absolute Auto 1.46 K/mm3 (0.9-3.2); Mean Corpuscular HGB Conc 31.7 g/dl (32-36); Mean Corpuscular Hemoglobin 30.3 pg (26-34); Mean Corpuscular Volume 95.7 fl (80-100); Mean Platelet Volume 9.7 fl (7.4-10.4); Monocytes Absolute Auto 0.4 K/mm3 (0.1-0.6); Monocytes Percent Auto 7.3 % (2.6-8.5); Neutrophils Absolute Auto 3.3 K/mm3 (1.3-6.7); Neutrophils Percent Auto 62.2 % (45.5-73.1); Platelet Count Result 230 k/mm3 (150-375); Red Blood Count 3.46 M/mm3 (4.2-5.4); Red Cell Distribution Width 13.2 % (11.5-14.5); White Blood Count 5.2 K/mm3 (4.5-10.0)
[2024-08-04 07:55] LABS: Alanine Aminotransferase 19 U/L (6-35); Albumin Level 3.2 g/dL (3.5-5.1); Alkaline Phosphatase 63 U/L (38-126); Anion Gap 9 mmol/L (4-12); Aspartate Amino Transferase 27 U/L (14-36); Blood Urea Nitrogen 12 mg/dL (7-17); Calcium 8.4 mg/dL (8.4-10.2); Carbon Dioxide 19 mmol/L (22-30); Chloride 109 mmol/L (98-107); Estimated CRCL calculation 54 ml/min; Estimated Glomerular Filt Rate > 60; Glucose 88 mg/dL (65-110); Magnesium 1.7 mg/dL (1.6-2.3); Potassium 3.3 mmol/L (3.4-5.0); Sodium 137 mmol/L (137-145)
[2024-08-04] MEDS: FERROUS SULFATE 325 MG TABLET DR PO (09:43)
[2024-08-04] MEDS: ACETAMINOPHEN 325 MG TABLET 650 MG PO ×2 (09:43→17:51)
[2024-08-04] MEDS: CEPHALEXIN 500 MG CAPSULE PO (09:43)
[2024-08-04] MEDS: hydrALAZINE 10 MG TABLET PO ×3 (09:44→20:23)
[2024-08-04] MEDS: POTASSIUM CHLORIDE 20 MEQ ER TABLET 40 MEQ PO (09:44)
[2024-08-04] MEDS: ramipriL 5 MG CAPSULE 20 MG PO (09:44)
[2024-08-04] MEDS: ERGOCALCIFEROL 50,000 UNITS CAPSULE 50000 UNITS PO (09:45)
[2024-08-04] MEDS: MEMANTINE 10 MG TABLET PO ×2 (09:45→20:23)
[2024-08-04] MEDS: OSELTAMIVIR PHOSPHATE 30 MG CAPSULE PO ×2 (09:45→20:23)
[2024-08-04] MEDS: dilTIAZem HCL CD 240 MG CAP.24HR PO (09:46)
--- NOTE | 2024-08-04 12:07 | PCPTNOTE ---
On 08/04/24, the student, YOU Corral, provided care and completed [facility] documentation on this patient. I have reviewed the student's documentation and agree with the findings.
--- NOTE | 2024-08-04 13:17 | PM.IMPN ---
Progress Note: A&P Assessment and Plan (1) Acute UTI: Code(s): N39.0 - Urinary tract infection, site not specified Status: Acute Assessment and Plan: 07/31/24: Urine culture pending. Continue Rocephin 1G Q24 hrs Trend labs and VS. Not meeting sepsis criteria. 08/01/24: Urine culture still pending. Continue Rocephin. Continue lab and VS trend. 08/02/24: Urine culture negative. Switch antibiotic to Cephalexin 500 mg PO q 12. 08/03/24 Continue Cephalexin 500 mg PO q 12. 08/04/24: Completed Cephalexin today. (2) Influenza A: Code(s): J10.1 - Influenza due to other identified influenza virus with other respiratory manifestations Status: Acute Assessment and Plan: 07/31/24: Continue Tamiflu. Droplet precautions. Supportive treatment as needed. 08/01/24: On room air. Continue supportive treatment. Droplet precautions. 08/02/24: On room air. Continue supportive treatment. Droplet precautions. Tamiflu continue PT/OT 08/03/24: On room air. Continue supportive treatment. Droplet precautions. Tamiflu continue PT/OT 08/04/24: On room air. Continue supportive treatment. Droplet precautions. Tamiflu will be complete after evening dose today. Decrease NS @50 ml/hr. PT/OT (3) Head injury: Qualifiers: Encounter type: initial encounter Qualified Code(s): S09.90XA - Unspecified injury of head, initial encounter Code(s): S09.90XA - Unspecified injury of head, initial encounter Status: Acute Assessment and Plan: 07/31/24: CT without any acute ICH. Left Parietal Hematoma present. Monitor for any Neurological changes. 08/01/24: PRN tylenol for pain. Bruising present to left parietal scalp. Fall precautions. 08/02/24: PRN tylenol for pain. Bruising present to left parietal scalp. Fall precautions. 08/03/24: PRN tylenol for pain. Bruising present to left parietal scalp. Fall precautions. 08/04/24: PRN tylenol for pain. Bruising present to left parietal scalp. Fall precautions. (4) Hypokalemia: Code(s): E87.6 - Hypokalemia Status: Acute Assessment and Plan: Potassium 3.3. Potassium Chloride 40 meq PO x 1. Monitor labs. (5) Hypertension: Code(s): I10 - Essential (primary) hypertension Status: Acute Assessment and Plan: Blood pressure elevated at 188/72 this morning. Patient had received 3 doses of Hydralazine 10 mg IVP in the last 24 hours. Add Hydralazine 10 mg PO qid. Continue Ramipril 20 mg PO daily. Blood pressure improved to 160/61. Monitor blood pressures. Subjective Date/time seen: 08/04/24 13:17 Interval history: Patient lying in bed. Patient denies chest pain, palpitations, headache, dizziness, nausea, or vomiting. Patient reports some tenderness to left chest when she touches the skin, denies heart pain. Nurse reports that appetite is improving. Asking when she can go back to facility. Review of Systems Review of Systems: All systems reviewed & are unremarkable except as noted in HPI and below Exam Const: General: comfortable and no acute distress Resp: Effort & Inspection: normal respiratory effort Auscultation: clear to auscultation bilaterally Cardio: Rate: regular rate Rhythm: regular rhythm GI: GI Palp: Yes Soft to palpation Auscultation: normal bowel sounds Neuro: Speech: normal speech Extrem: General: no pedal edema Psych: Affect: normal affect Other: Oriented to self. Objective Data Vital Signs Vital Signs: Vital Signs - 24 hr 08/03/24 14:00 08/03/24 20:00 08/03/24 21:11 Temperature 98.1 F 98.4 F Pulse Rate 85 87 Respiratory Rate 18 18 Blood Pressure 149/74 H 192/98 H Pulse Oximetry 97 94 Oxygen Delivery Room Air 08/04/24 05:43 Temperature 98.1 F Pulse Rate 94 Respiratory Rate 18 Blood Pressure 188/72 H Pulse Oximetry 94 Oxygen Delivery Intake/Output Intake/Output: Intake & Output 08/01/24 08/02/24 08/03/24 08/04/24 23:59 23:59 23:59 23:59 Intake Total 2049 3150 3181.7 2151.7 Output Total Balance 2049 3145 3181.7 2151.7 Meds/Results Medications: Active Medications Generic Name Dose Route Start Last Admin Trade Name Freq PRN Reason Stop Dose Admin Acetaminophen 650 mg 07/31/24 09:00 08/04/24 09:43 Acetaminophen 325 Mg Tablet PO 650 mg BID OTTO Administration Diltiazem HCl 240 mg 07/31/24 09:00 08/04/24 09:46 Diltiazem Hcl Cd 240 Mg Cap.24hr PO 240 mg Q24H OTTO Administration Ergocalciferol 50,000 units 08/04/24 09:00 08/04/24 09:45 Ergocalciferol 50,000 Units Capsule PO 50,000 units Fr@0900 OTTO Administration Ferrous Sulfate 325 mg 07/31/24 09:00 08/04/24 09:43 Ferrous Sulfate [address] PO 325 mg DAILY OTTO Administration Hydralazine HCl 10 mg 08/03/24 08:21 08/04/24 04:09 Hydralazine Hcl 20 Mg/Ml Vial IV PUSH 10 mg Q8H PRN Administration Blood Pressure - High Hydralazine HCl 10 mg 08/04/24 13:00 08/04/24 09:44 Hydralazine 10 Mg Tablet PO 10 mg QID OTTO Administration Sodium Chloride 1,000 mls @ 50 mls/hr 07/31/24 06:05 08/04/24 09:00 Normal Saline Iv IV CONT 0 mls/hr .Q20H OTTO Infusion Loperamide HCl 2 mg 07/31/24 08:48 Loperamide Hcl 2 Mg Capsule PO Q3H PRN loose stool Melatonin 5 mg 07/31/24 06:04 08/03/24 20:06 Melatonin 5 Mg Tablet PO 5 mg HS PRN Administration Insomnia Memantine 10 mg 07/31/24 09:00 08/04/24 09:45 Memantine 10 Mg Tablet PO 10 mg Q12HR OTTO Administration Ondansetron HCl 8 mg 07/31/24 08:59 Ondansetron Hcl Odt 4 Mg Tablet PO Q8H PRN nausea and vomiting Oseltamivir Phosphate 30 mg 07/31/24 21:00 08/04/24 09:45 Oseltamivir Phosphate 30 Mg Capsule PO 08/04/24 21:01 30 mg Q12HR OTTO Administration Polyethylene Glycol 17 gm 07/31/24 08:48 Polyethylene Glycol 3350 17 Gm Powd.Pack PO DAILY PRN constipation Prochlorperazine Edisylate 10 mg 07/31/24 06:04 Prochlorperazine Edisylate 10 Mg/2 Ml Vial IV PUSH Q6H PRN Nausea And Vomiting Ramipril 20 mg 07/31/24 09:00 08/04/24 09:44 Ramipril 5 Mg Capsule PO 20 mg DAILY OTTO Administration Radiology Results: ITS Impressions Cervical Spine CT 07/31/24 06:24 Impression: No acute fracture. 3 mm anterolisthesis of C4-C5, similar to prior exam. Moderate degenerative change, as above. Head CT 07/31/24 06:26 Impression: No intracranial hemorrhage, mass, or acute infarct. Atrophy and chronic white matter changes, as above. Soft tissue swelling/hematoma in the left parietal scalp. Elbow X-Ray 07/31/24 06:28 Impression: Unremarkable radiographs. Pelvis X-Ray 07/31/24 06:28 Impression: No acute abnormality. Right hip arthroplasty. Degenerative changes, as above. Chest X-Ray 07/31/24 06:29 Impression: Clear lungs. Stable cardiomegaly. Labs Labs: Laboratory Results - last 24 hr 08/04/24 06:46 WBC 5.2 RBC 3.46 L Hgb 10.5 L Hct 33.1 L MCV 95.7 MCH 30.3 MCHC 31.7 L RDW 13.2 Plt Count 230 MPV 9.7 Immature Gran % (Auto) 0.4 Neut % (Auto) 62.2 Lymph % (Auto) 28.0 [place] % (Auto) 7.3 Eos % (Auto) 1.9 Baso % (Auto) 0.2 Lymph # (Auto) 1.46 [place] # (Auto) 0.4 Eos # (Auto) 0.1 Baso # (Auto) 0.0 Abs Immat Gran (auto) 0.02 Absolute Neuts (auto) 3.3 Absolute Nucleated RBC 0.000 Nucleated RBC % 0.0 Sodium 137 Potassium 3.3 L Chloride 109 H Carbon Dioxide 19 L Anion Gap 9 BUN 12 Creatinine 0.54 L Estim Creat Clear Calc 54 Estimated GFR > 60 Glucose 88 Calcium 8.4 Magnesium 1.7 Total Bilirubin 1.0 AST 27 ALT 19 Alkaline Phosphatase 63 Total Protein 6.0 L Albumin 3.2 L Quality VTE Prophylaxis VTE prophylaxis: mechanical ordered
[2024-08-04 14:22] VITALS: BP 160/61; PULSE 84; RESP 17; TEMP 36.9; O2SAT 95
[2024-08-04] MEDS: MELATONIN 5 MG TABLET PO (20:23)
[2024-08-04 22:00] VITALS: BP 158/61; PULSE 79; RESP 18; TEMP 36.3; O2SAT 95
[2024-08-05 06:00] VITALS: BP 186/94; PULSE 90; RESP 18; TEMP 37.2; O2SAT 97
[2024-08-05 06:26] LABS: Basophils Percent Auto 0.5 % (0.2-1.2); Eosinophils Absolute Auto 0.2 K/mm3 (0-0.3); Eosinophils Percent Auto 2.8 % (0-4.4); Hemoglobin 10.5 g/dL (12.0-15.0); Immature Granulocyte Absolute 0.02 K/mm3 (0.00-0.031); Immature Granulocyte Percent A 0.4 % (0-0.5); Lymphocytes Absolute Auto 1.73 K/mm3 (0.9-3.2); Lymphocytes Percent Auto 30.5 % (18.3-44.2); Mean Corpuscular HGB Conc 31.8 g/dl (32-36); Mean Corpuscular Volume 94.3 fl (80-100); Mean Platelet Volume 9.3 fl (7.4-10.4); Monocytes Absolute Auto 0.5 K/mm3 (0.1-0.6); Monocytes Percent Auto 8.1 % (2.6-8.5); Neutrophils Absolute Auto 3.3 K/mm3 (1.3-6.7); Neutrophils Percent Auto 57.7 % (45.5-73.1); Platelet Count Result 242 k/mm3 (150-375); Red Cell Distribution Width 13.2 % (11.5-14.5); White Blood Count 5.7 K/mm3 (4.5-10.0)
[2024-08-05 06:34] VITALS: BP 158/74
[2024-08-05 06:36] LABS: Alanine Aminotransferase 19 U/L (6-35); Albumin Level 3.4 g/dL (3.5-5.1); Alkaline Phosphatase 59 U/L (38-126); Anion Gap 8 mmol/L (4-12); Aspartate Amino Transferase 26 U/L (14-36); Bilirubin,Total 0.9 mg/dL (0.2-1.3); Blood Urea Nitrogen 17 mg/dL (7-17); Calcium 8.7 mg/dL (8.4-10.2); Carbon Dioxide 21 mmol/L (22-30); Chloride 108 mmol/L (98-107); Estimated CRCL calculation 43 ml/min; Estimated Glomerular Filt Rate > 60; Glucose 93 mg/dL (65-110); Magnesium 1.9 mg/dL (1.6-2.3); Potassium 3.6 mmol/L (3.4-5.0); Sodium 137 mmol/L (137-145)
--- NOTE | 2024-08-05 09:54 | PM.DS ---
DS: Admitting Diagnosis Discharge Date 08/05/24 Admitting Diagnosis Fall, head injury DS: Discharge Diagnosis Discharge Diagnosis (1) Fall: Code(s): W19.XXXA - Unspecified fall, initial encounter Status: Acute (2) Influenza A: Code(s): J10.1 - Influenza due to other identified influenza virus with other respiratory manifestations Status: Acute (3) Head injury: Qualifiers: Encounter type: initial encounter Qualified Code(s): S09.90XA - Unspecified injury of head, initial encounter Code(s): S09.90XA - Unspecified injury of head, initial encounter Status: Acute (4) Hypokalemia: Code(s): E87.6 - Hypokalemia Status: Acute (5) Hypertension: Code(s): I10 - Essential (primary) hypertension Status: Acute (6) Acute UTI: Code(s): N39.0 - Urinary tract infection, site not specified Status: Acute DS: Summary Hospital Course Hospital Course: Came to ER after a fall and hitting head. Temp of 101. Influenza A positive. Urine 1+ protein, 1+ blood, 1+ leukocytes, RBC 11-20, WBC 11-20, Bacteria 4+. Cervical Spine CT 07/31/24 06:24 Impression: No acute fracture. 3 mm anterolisthesis of C4-C5, similar to prior exam. Moderate degenerative change, as above. Head CT 07/31/24 06:26 Impression: No intracranial hemorrhage, mass, or acute infarct. Atrophy and chronic white matter changes, as above. Soft tissue swelling/hematoma in the left parietal scalp. Elbow X-Ray 07/31/24 06:28 Impression: Unremarkable radiographs. Pelvis X-Ray 07/31/24 06:28 Impression: No acute abnormality. Right hip arthroplasty. Degenerative changes, as above. Chest X-Ray 07/31/24 06:29 Impression: Clear lungs. Stable cardiomegaly. Patient completed Tamiflu and antibiotics. PT/OT. Blood cultures negative, urine culture negative. Patient discharged back to [facility]. Status at Discharge Functional status at discharge: uses cane/walker Overall status at discharge: patient is not back to baseline Time Spent with Patient Time attestation: Total time spent providing and/or coordinating discharge services: Time spent: Greater than 30 minutes Exam Const: General: comfortable and no acute distress Resp: Effort & Inspection: normal respiratory effort Auscultation: clear to auscultation bilaterally Cardio: Rate: regular rate Rhythm: regular rhythm GI: GI Palp: Yes Soft to palpation Auscultation: normal bowel sounds Psych: Other: oriented to self. Wanting to go back to her facility. DS: Data Data Completed and Pending Labs on day of discharge: Labs from last 24 hours 08/05/24 06:09 WBC 5.7 RBC 3.50 L Hgb 10.5 L Hct 33.0 L MCV 94.3 MCH 30.0 MCHC 31.8 L RDW 13.2 Plt Count 242 MPV 9.3 Immature Gran % (Auto) 0.4 Neut % (Auto) 57.7 Lymph % (Auto) 30.5 [place] % (Auto) 8.1 Eos % (Auto) 2.8 Baso % (Auto) 0.5 Lymph # (Auto) 1.73 [place] # (Auto) 0.5 Eos # (Auto) 0.2 Baso # (Auto) 0.0 Abs Immat Gran (auto) 0.02 Absolute Neuts (auto) 3.3 Absolute Nucleated RBC 0.000 Nucleated RBC % 0.0 Sodium 137 Potassium 3.6 Chloride 108 H Carbon Dioxide 21 L Anion Gap 8 BUN 17 Creatinine 0.69 L Estim Creat Clear Calc 43 Estimated GFR > 60 Glucose 93 Calcium 8.7 Magnesium 1.9 Total Bilirubin 0.9 AST 26 ALT 19 Alkaline Phosphatase 59 Total Protein 6.0 L Albumin 3.4 L Preliminary micro results at discharge 07/31/24 01:39 Blood Culture - Preliminary Blood 07/31/24 01:40 Blood Culture - Preliminary Blood Discharge Plan Discharge Attending physician on discharge: Avinash Garza Discharging Clinician: Hina Chatman Anticipated Discharge Date/Time: 08/05/24 10:00 Patient Disposition: [facility] Activity: may shower and as tolerated Diet: heart healthy Discharge Instructions: PT/OT Ensure Enlive BID. Increase protein in diet. Take blood pressure prior to giving Hydralazine. Hold if Systolic less than 110. Completed flu treatment. Thank you for entrusting [facility] with your healthcare! Patient Instructions: Antibiotic Form, Hydralazine (By mouth), Influenza (DC), Hypertension (DC) Patient Language: Cymraes Stand Alone Forms: General Discharge Information Follow-up/Referrals: UNKNOWN,DOCTOR [Primary Care Provider] - (Follow up with facility doctor.) Discharge Medications: New hydralazine 10 mg Tablet 10 mg PO QID Qty: 56 0RF Continued ramipril 10 mg capsule 20 mg PO DAILY memantine 10 mg tablet 10 mg PO BID polyethylene glycol 3350 [Miralax] 17 gram/dose powder 17 g PO DAILY PRN (Reason: constipation) ferrous sulfate [Feosol] 325 mg (65 mg iron) tablet 325 mg PO DAILY ondansetron 8 mg tablet,disintegrating 8 mg PO Q8H PRN (Reason: nausea and vomiting) acetaminophen 325 mg capsule 650 mg PO BID diltiazem HCl 240 mg capsule,extended release 24hr 240 mg PO Q24H ergocalciferol (vitamin D2) 1,250 mcg (50,000 unit) capsule 1,250 mcg PO WEEKLY loperamide [Anti-Diarrheal (loperamide)] 2 mg capsule 2 mg PO Q3H PRN (Reason: loose stool) Rx Instructions: administer after each loose stool until symptoms controlled; do not exceed 8 mg per 24 hrs Date of admission: 08/01/24 10:31 Primary Care Provider: UNKNOWN,DOCTOR Admitting Provider: Anthony Charlton Attending physician on admission: Brooke Taveras Condition: Stable Hospitalist MIPS Heart Failure (Exclusion) Patient has history of Heart Transplant or Left Ventricular Assistive Device?: No IF YES, STOP HERE Heart Failure (Qualifier) Patient has current or prior documentation of LVEF less than or equal to 40%, or mod/servere depressed LVSF?: No IF NO, STOP HERE
[2024-08-05 11:20] LABS: SARS-CoV-2 RNA PCR Negative (Negative)
[2024-08-05] MEDS: MEMANTINE 10 MG TABLET PO (11:27)
[2024-08-05] MEDS: hydrALAZINE 10 MG TABLET PO (11:27)
[2024-08-05] MEDS: FERROUS SULFATE 325 MG TABLET DR PO (11:27)
[2024-08-05] MEDS: ACETAMINOPHEN 325 MG TABLET 650 MG PO (11:27)
[2024-08-05] MEDS: ramipriL 5 MG CAPSULE 20 MG PO (11:27)
[2024-08-05] MEDS: dilTIAZem HCL CD 240 MG CAP.24HR PO (11:28)
== END 2024-08-05 11:45 | DRG 194 ==
LOC: ANHED 07-31 03:52 → ANH3MEDSUR 07-31 04:43
PROVIDERS: Nurse Practitioner Adult Health; Admitting Provider Internal Medicine; Emergency Provider Physician Assistant; Visit Provider Nurse Practitioner Family
DX: J10.1 Influenza due to other identified influenza virus with other respiratory manifestations (principal); N39.0 Urinary tract infection, site not specified; I11.0 Hypertensive heart disease with heart failure; I50.9 Heart failure, unspecified; I48.0 Paroxysmal atrial fibrillation; E87.6 Hypokalemia; E78.5 Hyperlipidemia, unspecified; S00.03XA Contusion of scalp, initial encounter; W19.XXXA Unspecified fall, initial encounter; F03.90 Unspecified dementia, unspecified severity, without behavioral disturbance, psychotic disturbance, mood disturbance, and anxiety; Z20.822 Contact with and (suspected) exposure to COVID-19; Z96.649 Presence of unspecified artificial hip joint; Z11.52 Encounter for screening for COVID-19; Z79.01 Long term (current) use of anticoagulants
CPT/HCPCS: 36415; 70450; 71045; 72125; 72170; 73080; 80053; 81001; 83735; 85025; 87040; 87086; 87635; 87637; 96361; 96365; 97110; 97161; 97165; 97530; 97535; 99285; A9270; G0378; J0360; J0696; J7030